=== PATIENT | male | born 1940 | race Caucasian/White ===

== ENCOUNTER 2018-08-01 06:08 | Observation (INO) | payer BC, MEDICARE, OTHER ==
[2018-08-01 06:34] LABS: Hematocrit 39.3 % (42.0-52.0); Mean Cell Volume 87.3 fl (78-100); Mean Corpuscular Hemoglobin 28.9 pg (27-31); Mean Corpuscular Hgb Conc 33.1 g/dl (32-36); Mean Platelet Volume 10.7 fl (8-11.3); Neutrophil # 14.6 K/mm3 (1.3-6.0); Neutrophil % 87.3 % (42-75.0); Platelet Count 225 K/mm3 (150-450); Red Cell Distribution Width 13.1 % (11.5-14.0); White Blood Count 16.7 K/mm3 (4.0-10.5)
--- NOTE | 2018-08-01 06:40 | ERNOTE ---
Chest Pain/Cardiac HPI Chief Complaint: Chest Pain Time Seen by Provider: 08/01/18 06:23 Source: patient Exam Limitations: no limitations Immunizations: IMMUNIZATION HX Immunizations Up to Date Yes Allergies/Adverse Reactions: Allergies codeine Allergy (Unknown, Verified 08/01/18 06:20) Unknown NSAIDS (Non-Steroidal Anti-Inflamma Allergy (Unknown, Verified 08/01/18 06:20) Unknown cortisone [Cortisone] Adverse Reaction (Mild, Verified 08/01/18 06:20) CAUSES HIM TO "LOSE LEFT LEG" Poxhzga-Xsf-Ynn Reductase Inhibitor Adverse Reaction (Unknown, Verified 06:20) "Legs quit functioning" warfarin [Warfarin] Adverse Reaction (Unknown, Verified 08/01/18 06:20) Redness to scalp Home Medications: HOME MEDICATIONS Aspirin [Aspirin EC] 81 mg PO DAILY 08/01/18 [Last Taken 07/31/18 19:00] Cadexomer Iodine [Iodoflex] 1 each TP DAILY 08/01/18 [Last Taken Unknown] Finasteride [Proscar] 5 mg PO DAILY 08/01/18 [Last Taken Unknown] Furosemide 20 mg PO BID 08/01/18 [Last Taken Unknown] Insulin Aspart Prot/Insuln Asp [Novolog Mix 70/30] 40 units SQ QPM 08/01/18 [ Last Taken Unknown] Insulin Aspart Prot/Insuln Asp [Novolog Mix 70/30] 60 units SC QAM 08/01/18 [ Last Taken Unknown] Loratadine [Claritin] 10 mg PO DAILY 08/01/18 [Last Taken Unknown] Losartan Potassium [Cozaar] 100 mg PO DAILY 08/01/18 [Last Taken Unknown] Metoprolol Tartrate [Lopressor] 100 mg PO BID 08/01/18 [Last Taken Unknown] Narrative: Patient is here for chest pain that started sometime in the night. He had not felt well yesterday, was up at lot during the night as he had to belch and was hoping that urinating would help, glucose ran around 500 last night and this morning (usually runs below 200) Chest pain has resolved since coming to the ER He has a history of IA and CABG in 1991, has been dealing with a right foot ulcer for a while. Last night he noticed new redness on his foot Timing: resolved prior to arrival Severity/Quality: moderate Location: central Chest Pain Radiation: no radiation Activities at Onset: none Modifying Factors - Improves: Present: nothing Modifying Factors - Worsens: Present: nothing Nitro Today/Relief: no nitro taken today Associated Symptoms: Present: fever/chills, nausea. Absent: shortness of breath , vomiting Prior Chest Pain/Cardiac Workup: Reports: prior chest pain, cardiac cath Prior Treatment: Denies: recently seen Review of Systems - Review of Systems Constitutional: Present: chills, fatigue, malaise. Absent: recent illness ENT: Absent: nose congestion, sore throat Respiratory: Absent: shortness of breath, cough Cardiology: Present: See HPI, chest pain Gastrointestinal/Abdominal: Present: nausea. Absent: vomiting, diarrhea, abdominal pain Genitourinary: Present: no symptoms reported Musculoskeletal: Absent: back pain Neurological: Absent: headache, weakness, numbness Medical History (Last Updated 08/01/18 @ 08:00 by Yumiko Medina MD) Congestive heart failure (CHF) TIA (transient ischemic attack) Diabetes Foot ulcer Hypertension Myocardial infarct, old Surgical History: Surgical History (Last Reviewed 08/01/18 @ 06:40 by Yumiko Medina MD) History of coronary artery bypass graft History of heart artery stent Social History: Preferred Language Grenadian Do you have any oriental orthodox or No cultural preference? Smoking Status Former smoker Alcohol Use occasionally Drug Use none Physical Exam - Physical Exam General Appearance: Present: wd/wn, alert, no apparent distress, obese Head Exam: Present: normal inspection Respiratory: Present: no respiratory distress, normal breath sounds, lungs clear Cardiovascular/Chest: Present: regular rate, rhythm, no murmur Gastrointestinal/Abdominal: Present: nontender, nondistended, soft Extremity Exam: Present: normal except - - left leg: BKA with prothesis, right foot: deep ulcer under forefoot, erythema extending medially with swelling, no lymphangitis, decrased sensation (chronic) Neurological Exam: Present: alert, oriented, normal mood/affect Skin Exam: Present: normal color, warm/dry ED Progress - Results and Orders Patient's Lab Results:: I have reviewed the patient's lab results. - Vital Signs Patient's Vital Signs:: I have reviewed the patient's vital signs. Vital Signs: Vital Signs 08/01/18 06:09 Temperature 37.6 C Pulse Rate 96 Respiratory Rate 18 Blood Pressure 131/68 O2 Sat by Pulse Oximetry 94 - EKG EKG: NSR, nonspecific ST T wave changes EKG read: Interp. by me - X-Ray X-Ray #1 X-Ray: chest - cardiomegalie, venous congestion, pleural effusion Interpretation: Interp. by me - Progress/Reassessment Chief Complaint: Chest Pain Progress Note-Subjective: 08/01/18 07:30 discussed test results with patient and family offered admission here vs transfer to the [facility], patient is okay to be admitted here wide states that he has never been on antibiotics for this foot ulcer, had wound biopsie a few months ago that did not grow anything, they were given augmentin to start if there were any signs of infections, gave him one dose last night 08/01/18 07:31 discussed with oswald Harrison to admit patient for observation chest pain and cellulitis Departure Clinical Impression: Diabetic foot ulcer Qualifiers: Diabetic foot ulcer location: midfoot Diabetes mellitus type: type 2 Laterality : right Non-pressure ulcer stage: unspecified non-pressure ulcer stage Qualified Code(s): E11.621 - Type 2 diabetes mellitus with foot ulcer; L97.419 - Non-pressure chronic ulcer of right heel and midfoot with unspecified severity Chest pain Qualifiers: Chest pain type: unspecified Qualified Code(s): R07.9 - Chest pain, unspecified Congestive heart failure Qualifiers: Heart failure type: unspecified Heart failure chronicity: unspecified Qualified Code(s): I50.9 - Heart failure, unspecified - Departure Disposition: Still a patient Condition: Good
[2018-08-01] MEDS ORDERED: ASPIRIN 81 MG TAB.CHEW PO ONE (06:43)
[2018-08-01] MEDS ORDERED: ASPIRIN 81 MG TAB.CHEW ONE (06:44)
[2018-08-01 06:46] LABS: Prothrombin Time (Patient) 11.3 Seconds (9.0-11.0)
[2018-08-01 06:47] LABS: INR 1.13 INR (0.90-1.10); Partial Thrombolplastin Time 29.9 Seconds (24-32)
[2018-08-01 07:01] LABS: Albumin * 2.9 gm/dl (3.4-5.0); Anion Gap 12.5 mmol/L (6.8-13.8); BUN/Creatinine Ratio 17.3 (9.0-21.6); Bilirubin, Total 1.1 mg/dL (0.0-1.1); Ca. Corrected For Albumin 8.9 mg/dL (8.4-10.2); Calcium * 8.3 mg/dL (7.9-10.9); Potassium 4.5 mmol/L (3.4-4.6); Total Protein 7.4 gm/dL (6.2-8.2)
[2018-08-01 07:02] LABS: Troponin I 0.229 ng/mL (0.00-0.10)
[2018-08-01] MEDS ORDERED: FUROSEMIDE 10 MG/ML VIAL IV ONE (09:22)
[2018-08-01] MEDS ORDERED: HEPARIN SODIUM,PORCINE/D5W 25,000 UNITS/500 ML BAG IV PRN ×2 (10:22→11:06)
--- NOTE | 2018-08-01 11:03 | HP ---
Chief Complaint - Chief Complaint Date of Service: 08/01/18 Time of Service: 10:35 Chief Complaint: chest pain, elevated glucose, foot ulcer History of Present Illness: Pt with past medical history of diabetes with multiple amputations and decreased renal function presented to the ED after having chest pain and elevated blood sugars. His CP resolved by the time he got to the ED. Initial troponin was 0.2, and increased to 0.9 on recheck. He has a skin ulcer on the plantar surface of his right foot, and has been seeing wound care at the [facility] for approximately one year. He has developed increased dull pain in his right lower leg, and his foot developed some redness yesterday. He has a prescription for augmentin in case he were to have to redness, and he took one dose last night. He was also given a dose of Rocephin in the ED. Denies fevers, and no changes in his appetite. His blood sugars have also been elevated, and were greater than 500 last night. He gives himself 70/30 insulin bid, but his sugars have remained elevated. They are greater than 400 today. Medical History (Last Updated 08/01/18 @ 08:00 by Yumiko Medina MD) Congestive heart failure (CHF) TIA (transient ischemic attack) Diabetes Foot ulcer Hypertension Myocardial infarct, old Surgical History: Surgical History (Last Reviewed 08/01/18 @ 06:40 by Yumiko Medina MD) History of coronary artery bypass graft History of heart artery stent Family History: Family History (Last Updated 08/01/18 @ 09:27 by Umu Nieves RN) Mother Diabetes Father Diabetes Myocardial infarction Brother Esophageal cancer Social History: Patient Lives/Resources With Spouse Utilized Occupation retired Preferred Language American Do you have any shinto or No cultural preference? Smoking Status Former smoker Have you smoked in the past 12 No months Do you dip or chew tobacco No Alcohol Use occasionally Drug Use none Review Of Systems (GEN) - Review of Systems Generalized/Overall Review: Absent: Fever, Malaise, Diaphoresis Respiratory: Absent: Cough Cardiac: Absent: Chest Pain, Edema, Syncope Abdominal: Absent: Nausea, Diarrhea Genitourinary: Absent: Dysuria Musculoskeletal: Present: Other - Right lower extremity pain Skin: Present: Other - 3 cm ulcer Immunizations: IMMUNIZATION HX Immunizations Up to Date Yes Allergies/Adverse Reactions: Allergies Allergy/AdvReac Type Severity Reaction Status Date / Time codeine Allergy Unknown Unknown Verified 08/01/18 06:20 NSAIDS (Non-Steroidal Allergy Unknown Unknown Verified 08/01/18 06:20 Anti-Inflamma cortisone [Cortisone] AdvReac Mild CAUSES HIM Verified 08/01/18 06:20 TO "LOSE LEFT LEG" Ltxgump-Cyx-Laa Reductase AdvReac Unknown "Legs quit Verified 08/01/18 06:20 Inhibitor functioning" warfarin [Warfarin] AdvReac Unknown Redness to Verified 08/01/18 06:20 scalp Home Medications: HOME MEDICATIONS Aspirin [Aspirin EC] 81 mg PO DAILY 08/01/18 [Last Taken 07/31/18 19:00] Cadexomer Iodine [Iodoflex] 1 each TP DAILY 08/01/18 [Last Taken Unknown] Finasteride [Proscar] 5 mg PO DAILY 08/01/18 [Last Taken Unknown] Insulin Aspart Prot/Insuln Asp [Novolog Mix 70/30] 42 units SQ QPM 08/01/18 [ Last Taken Unknown] Insulin Aspart Prot/Insuln Asp [Novolog Mix 70/30] 62 units SC QAM 08/01/18 [ Last Taken Unknown] Loratadine [Claritin] 10 mg PO DAILY 08/01/18 [Last Taken Unknown] Losartan Potassium [Cozaar] 50 mg PO DAILY 08/01/18 [Last Taken Unknown] Metoprolol Tartrate [Lopressor] 100 mg PO BID 08/01/18 [Last Taken Unknown] RX: Furosemide 20 mg PO BID 08/01/18 [Last Taken Unknown] Exam - Exam Vital Signs: Vital Signs - Last Taken Temp 37.0 C 08/01/18 09:02 Pulse 70 08/01/18 09:50 Resp 20 08/01/18 09:02 BP 113/58 08/01/18 09:50 Pulse Ox 94 08/01/18 09:02 Constitutional: Present: Oriented x3, Cooperative, No distress Respiratory: Present: lungs clear, normal breath sounds, no respiratory distress Cardiovascular/Chest: Present: regular rate, rhythm Peripheral Pulses: dorsalis-pedis (R): 0 Abdomen: Present: soft, nontender Extremity: Present: other - Left lower leg amputation. right great toe amputation Skin Exam: Present: other - 3 cm stage 3 ulcer of plantar surface of right foot , with mild forefoot erythema. Healing 1.4 cm ulcer of right calcaneus Lymphatic: Present: other - 3 cm stage 3 ulcer of plantar surface of right foot , with mild forefoot erythema Appearance: Present: impaired insight Eye contact: Present: cooperative Diagnostic Studies: Abnormal Lab Results 08/01/18 08/01/18 08/01/18 Range/Units 05:30 06:30 06:30 WBC 16.7 H (4.0-10.5) K/mm3 RBC 4.50 L (4.7-6.0) M/mm3 Hgb 13.0 L (13.5-18.0) gm/dL Hct 39.3 L (42.0-52.0) % Immature Gran # (Auto) 0.06 H (0.000-0.0310) K/mm3 Neutrophils % 87.3 H (42-75.0) % Lymphocytes % 6.4 L (20-51) % Neutrophils # 14.6 H (1.3-6.0) K/mm3 Lymphocytes # 1.07 L (1.5-3.5) k/mm3 PT 11.3 H (9.0-11.0) Seconds INR (Anticoag Therapy) 1.13 H (0.90-1.10) INR Sodium (132-142) mmol/L Chloride (97-106) mmol/L BUN (6-23) mg/dL Creatinine (0.4-1.4) mg/dL Est GFR (Non-Af Amer) (60-130) mL/min Random Glucose (70-110) mg/dL ALT (19-67) U/L Troponin I (0.00-0.10) ng/mL C-Reactive Prot, Quant 23.4 H (0.0-0.9) mg/dL B-Natriuretic Peptide (5-650) pg/mL Albumin (3.4-5.0) gm/dl 08/01/18 08/01/18 08/01/18 Range/Units 06:30 07:00 09:47 WBC (4.0-10.5) K/mm3 RBC (4.7-6.0) M/mm3 Hgb (13.5-18.0) gm/dL Hct (42.0-52.0) % Immature Gran # (Auto) (0.000-0.0310) K/mm3 Neutrophils % (42-75.0) % Lymphocytes % (20-51) % Neutrophils # (1.3-6.0) K/mm3 Lymphocytes # (1.5-3.5) k/mm3 PT (9.0-11.0) Seconds INR (Anticoag Therapy) (0.90-1.10) INR Sodium 127 L (132-142) mmol/L Chloride 93 L (97-106) mmol/L BUN 34 H (6-23) mg/dL Creatinine 1.97 H (0.4-1.4) mg/dL Est GFR (Non-Af Amer) 35 L D (60-130) mL/min Random Glucose 484 H (70-110) mg/dL ALT 12 L (19-67) U/L Troponin I 0.229 H* 0.795 H* (0.00-0.10) ng/mL C-Reactive Prot, Quant (0.0-0.9) mg/dL B-Natriuretic Peptide 91354 H (5-650) pg/mL Albumin 2.9 L (3.4-5.0) gm/dl Laboratory Results WBC 16.7 K/mm3 (4.0-10.5) H 08/01/18 06:30 RBC 4.50 M/mm3 (4.7-6.0) L 08/01/18 06:30 Hgb 13.0 gm/dL (13.5-18.0) L 08/01/18 06:30 Hct 39.3 % (42.0-52.0) L 08/01/18 06:30 MCV 87.3 fl (78-100) 08/01/18 06:30 MCH 28.9 pg (27-31) 08/01/18 06:30 MCHC 33.1 g/dl (32-36) 08/01/18 06:30 RDW 13.1 % (11.5-14.0) 08/01/18 06:30 Plt Count 225 K/mm3 (150-450) 08/01/18 06:30 MPV 10.7 fl (8-11.3) 08/01/18 06:30 Immature Gran % (Auto) 0.40 % (0.001-0.429) 08/01/18 06:30 Immature Gran # (Auto) 0.06 K/mm3 (0.000-0.0310) H 08/01/18 06:30 Neutrophils % 87.3 % (42-75.0) H 08/01/18 06:30 Lymphocytes % 6.4 % (20-51) L 08/01/18 06:30 Monocytes % 5.5 % (0.0-9) 08/01/18 06:30 Eosinophils % 0.1 % (0.0-3.0) 08/01/18 06:30 Basophils % 0.3 % (0.0-1.0) 08/01/18 06:30 Nucleated RBC % 0.0 k/mm3 (0-1) 08/01/18 06:30 Neutrophils # 14.6 K/mm3 (1.3-6.0) H 08/01/18 06:30 Lymphocytes # 1.07 k/mm3 (1.5-3.5) L 08/01/18 06:30 Monocytes # 0.9 k/mm3 (0.0-1.0) 08/01/18 06:30 Eosinophils # 0.0 k/mm3 (0.0-0.7) 08/01/18 06:30 Absolute Basophils 0.1 k/mm3 (0.0-0.1) 08/01/18 06:30 PT 11.3 Seconds (9.0-11.0) H 08/01/18 06:30 INR (Anticoag Therapy) 1.13 INR (0.90-1.10) H 08/01/18 06:30 PTT (Beth) 29.9 Seconds (24-32) 08/01/18 06:30 VBG pH 7.392 (7.32-7.43) 08/01/18 06:30 Sodium 127 mmol/L (132-142) L 08/01/18 06:30 Plasma Sodium 133 mmol/L (130-142) 08/01/18 06:30 Potassium 4.5 mmol/L (3.4-4.6) 08/01/18 06:30 Chloride 93 mmol/L (97-106) L 08/01/18 06:30 Carbon Dioxide 26.0 mmol/L (24-32.6) 08/01/18 06:30 Anion Gap 12.5 mmol/L (6.8-13.8) 08/01/18 06:30 BUN 34 mg/dL (6-23) H 08/01/18 06:30 Creatinine 1.97 mg/dL (0.4-1.4) H 08/01/18 06:30 Est GFR (Non-Af Amer) 35 mL/min (60-130) L D 08/01/18 06:30 BUN/Creatinine Ratio 17.3 (9.0-21.6) 08/01/18 06:30 Random Glucose 484 mg/dL (70-110) H 08/01/18 06:30 Calcium 8.3 mg/dL (7.9-10.9) 08/01/18 06:30 Calcium Adj for Albumin 8.9 mg/dL (8.4-10.2) 08/01/18 06:30 Total Bilirubin 1.1 mg/dL (0.0-1.1) 08/01/18 06:30 AST 14 U/L (0-48) 08/01/18 06:30 ALT 12 U/L (19-67) L 08/01/18 06:30 Alkaline Phosphatase 138 U/L (50-170) 08/01/18 06:30 Troponin I 0.795 ng/mL (0.00-0.10) H* 08/01/18 09:47 C-Reactive Prot, Quant 23.4 mg/dL (0.0-0.9) H 08/01/18 05:30 B-Natriuretic Peptide 91587 pg/mL (5-650) H 08/01/18 07:00 Total Protein 7.4 gm/dL (6.2-8.2) 08/01/18 06:30 Albumin 2.9 gm/dl (3.4-5.0) L 08/01/18 06:30 Serum Ketones Negative (NEGATIVE) 08/01/18 06:30 Assessment/Plan - Assessment/Plan (1) NSTEMI (non-ST elevated myocardial infarction) Assessment: Patient's troponin is quickly elevating, from 0.2 to 0.79 within 3 hours. [facility] Not currently having chest pain. Problem: Acute (2) Diabetic foot ulcer Assessment: Concern for osteomyelitis with his pain and developing erythema. Unable to obtain MRI today on Friday. He likely will also need surgical consult. Transfer process has been started for his NSTEMI, but his possible osteomyelitis will also need treatment at another facility as he may need surgery. His creatinine is 1.9, which looks to be his baseline renal function. He took one dose of augmentin last night, and was given a dose of Rocephin this morning. If he does not transfer this morning, will start IV vancomycin with pharmacy to dose. Problem: Acute Qualifiers: Diabetic foot ulcer location: midfoot Diabetes mellitus type: type 2 Laterality: right Non-pressure ulcer stage: unspecified non-pressure ulcer stage Qualified Code(s): E11.621 - Type 2 diabetes mellitus with foot ulcer; L97.419 - Non-pressure chronic ulcer of right heel and midfoot with unspecified severity (3) Diabetes Assessment: Negative ketones, but his glucose is greater than 400, likely secondary to his foot infection or NSTEMI. Will start SSI and continue his home insulin. 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 No crackles or lower extremity swelling. 20 mg IV lasix given. Problem: Chronic Qualifiers: Heart failure type: unspecified Heart failure chronicity: unspecified Qualified Code(s): I50.9 - Heart failure, unspecified (5) Decreased renal function Assessment: Creatinine of 1.9, which is his baseline. Will need to carefully follow renal function with the administration of abx, particularly vancomycin. Problem: Chronic
[2018-08-01] MEDS ORDERED: HEPARIN SODIUM,PORCINE 5,000 UNITS/ML VIAL IV ONE (11:04)
[2018-08-01] MEDS: INSULIN LISPRO 100 UNITS/ML VIAL SC SCH ×3 (12:09→21:36)
[2018-08-01] MEDS ORDERED: WATER IV SCH ×2 (13:00)
[2018-08-01] MEDS ORDERED: DEXTROSE 5% IV SCH ×2 (13:00)
[2018-08-01] MEDS ORDERED: VANCOMYCIN HCL IV SCH ×2 (13:00)
--- NOTE | 2018-08-01 13:23 | DS ---
Transfer Discharge Summary - Diagnosis(s)/Problems (1) NSTEMI (non-ST elevated myocardial infarction) Narrative: Heparin drip started, and he was accepted by the [facility] for possible cath. Problem: Acute (2) Diabetic foot ulcer Narrative: Possible osteomyelitis of his right foot. Vanc started, and would recommend MRI after transfer. Patient is at high risk for recurrent osteomyelitis, as he has had his left lower leg amputated, and his right great toe amputated. Problem: Acute (3) Diabetes Problem: Chronic (4) Congestive heart failure Narrative: 20 mg IV lasix given. No significant crackles or lower extremity edema. Problem: Chronic (5) Decreased renal function Narrative: Creatinine at 1.97. Will need close follow up after starting vancomycin. Problem: Chronic - Course Description of Stay: Patient presented to the ED after having some chest pain, hyperglycemia, and increasing redness of his right foot. He has a history of a previous RI. His chest pain had resolved by the time he arrived to the ED, but he was worried about his blood sugars. It was greater than 500 yesterday, and in the 400's in the ED. He also has a right foot ulcer, which has been present for a year and [facility] [place] He has been having increased right lower extremity pain, and noticed mild redness yesterday. He had an existing prescription for augmentin for this situation, and he took one tablet last night. His troponin went from 0.229 to 0.792 within 3 hours, and transfer procedure was initiated. Heparin drip was started. He was accepted by the [facility] For his foot ulcer, he was administered a dose of Rocephin in the ED, and IV vanc was started. His creatinine was 1.97, which was his baseline. Pharmacy was asked to dose his vancomycin. Foot xray showed possible pathologic fracture or osteomyelitis of the second metatarsal. Unable to obtain MRI here on the weekend, so this will be further addressed by the transfer facility. His blood sugar was 445, and SSI was initiated. Negative ketones, and venous blood gas was 7.392. Procedures Performed: none - Results and Findings Results and Findings: Laboratory Results - last 24 hr 08/01/18 08/01/18 08/01/18 05:30 06:30 06:30 WBC 16.7 H RBC 4.50 L Hgb 13.0 L Hct 39.3 L MCV 87.3 MCH 28.9 MCHC 33.1 RDW 13.1 Plt Count 225 MPV 10.7 Immature Gran % (Auto) 0.40 Immature Gran # (Auto) 0.06 H Neutrophils % 87.3 H Lymphocytes % 6.4 L Monocytes % 5.5 Eosinophils % 0.1 Basophils % 0.3 Nucleated RBC % 0.0 Neutrophils # 14.6 H Lymphocytes # 1.07 L Monocytes # 0.9 Eosinophils # 0.0 Absolute Basophils 0.1 PT 11.3 H INR (Anticoag Therapy) 1.13 H PTT (Beth) 29.9 VBG pH Sodium Plasma Sodium Potassium Chloride Carbon Dioxide Anion Gap BUN Creatinine Est GFR (Non-Af Amer) BUN/Creatinine Ratio Random Glucose Calcium Calcium Adj for Albumin Total Bilirubin AST ALT Alkaline Phosphatase Troponin I C-Reactive Prot, Quant 23.4 H B-Natriuretic Peptide Total Protein Albumin Serum Ketones 08/01/18 08/01/18 08/01/18 06:30 06:30 06:30 WBC RBC Hgb Hct MCV MCH MCHC RDW Plt Count MPV Immature Gran % (Auto) Immature Gran # (Auto) Neutrophils % Lymphocytes % Monocytes % Eosinophils % Basophils % Nucleated RBC % Neutrophils # Lymphocytes # Monocytes # Eosinophils # Absolute Basophils PT INR (Anticoag Therapy) PTT (Beth) VBG pH 7.392 Sodium 127 L Plasma Sodium 133 Potassium 4.5 Chloride 93 L Carbon Dioxide 26.0 Anion Gap 12.5 BUN 34 H Creatinine 1.97 H Est GFR (Non-Af Amer) 35 L D BUN/Creatinine Ratio 17.3 Random Glucose 484 H Calcium 8.3 Calcium Adj for Albumin 8.9 Total Bilirubin 1.1 AST 14 ALT 12 L Alkaline Phosphatase 138 Troponin I 0.229 H* C-Reactive Prot, Quant B-Natriuretic Peptide Total Protein 7.4 Albumin 2.9 L Serum Ketones Negative 08/01/18 08/01/18 08/01/18 07:00 09:47 09:47 WBC RBC Hgb Hct MCV MCH MCHC RDW Plt Count MPV Immature Gran % (Auto) Immature Gran # (Auto) Neutrophils % Lymphocytes % Monocytes % Eosinophils % Basophils % Nucleated RBC % Neutrophils # Lymphocytes # Monocytes # Eosinophils # Absolute Basophils PT INR (Anticoag Therapy) PTT (Beth) VBG pH Sodium Plasma Sodium Potassium Chloride Carbon Dioxide Anion Gap BUN Creatinine 2.01 H Est GFR (Non-Af Amer) BUN/Creatinine Ratio Random Glucose Calcium Calcium Adj for Albumin Total Bilirubin AST ALT Alkaline Phosphatase Troponin I 0.795 H* C-Reactive Prot, Quant B-Natriuretic Peptide 39918 H Total Protein Albumin Serum Ketones - Medications Medications: Active Medications Ceftriaxone Sodium 1,000 mg/ (Dextrose/Water) 100 mls @ 200 mls/hr IV Q24H [facility] ; Protocol Stop: 08/31/18 08:01 Last Admin: 08/01/18 09:35 Dose: Not Given Heparin Sodium/Dextrose (Heparin 25,000 Units/D5w 500 Ml) 25,000 units in 500 mls @ 0 mls/hr IV TITR PRN; Protocol PRN Reason: Anticoagulation Stop: 08/31/18 11:07 Last Admin: 08/01/18 12:04 Dose: 20 mls/hr, 20 mls/hr Insulin Human Lispro (Humalog) 0 units SC ACHSINS [facility]; Protocol Stop: 08/31/18 12:01 Last Admin: 08/01/18 12:09 Dose: 6 units Discontinued Medications Aspirin (Aspirin Chewable) 324 mg PO ONCE ONE Stop: 08/01/18 06:44 Last Admin: 08/01/18 07:01 Dose: 324 mg Furosemide (Lasix) 20 mg IV ONCE ONE Stop: 08/01/18 09:23 Last Admin: 08/01/18 09:50 Dose: 20 mg Heparin Sodium (Porcine) (Heparin Sodium) 4,000 units IV ONCE ONE Stop: 08/01/18 11:05 Last Admin: 08/01/18 11:22 Dose: 4,000 units - Disposition Disposition: Short Term Hospital Inpatient Condition: Fair
[2018-08-01] MEDS ORDERED: INSULIN LISPRO 100 UNITS/ML VIAL SC ONE (13:45)
[2018-08-01] MEDS: BENZOCAINE/MENTHOL 16 EACH BOX MM PRN ×2 (15:13→17:14)
[2018-08-01] MEDS ORDERED: NORMAL SALINE 1,000 ML IV PRN (16:39)
[2018-08-01] MEDS: HEPARIN SODIUM,PORCINE/D5W 25,000 UNITS/500 ML BAG IV PRN (19:10)
[2018-08-02] MEDS ORDERED: HEPARIN SODIUM,PORCINE/D5W 25,000 UNITS/500 ML BAG IV PRN (02:01)
[2018-08-02] MEDS: INSULIN LISPRO 100 UNITS/ML VIAL SC SCH (06:57)
[2018-08-02] MEDS ORDERED: BISACODYL 10 MG SUPP.RECT RC PRN (07:29)
[2018-08-02 08:10] LABS: Hematocrit 37.6 % (42.0-52.0); Hemoglobin 12.4 gm/dL (13.5-18.0); Mean Corpuscular Hemoglobin 28.7 pg (27-31); Mean Platelet Volume 10.8 fl (8-11.3); Neutrophil # 9.2 K/mm3 (1.3-6.0); Neutrophil % 81.1 % (42-75.0); Platelet Count 219 K/mm3 (150-450); Red Blood Count 4.32 M/mm3 (4.7-6.0); White Blood Count 11.3 K/mm3 (4.0-10.5)
[2018-08-02 08:19] LABS: Albumin * 2.4 gm/dl (3.4-5.0); Anion Gap 9.8 mmol/L (6.8-13.8); BUN/Creatinine Ratio 19.9 (9.0-21.6); Bilirubin, Total 0.6 mg/dL (0.0-1.1); Carbon Dioxide 27.2 mmol/L (24-32.6); Total Protein 6.6 gm/dL (6.2-8.2)
[2018-08-02] MEDS ORDERED: POLYETHYLENE GLYCOL 3350 119 GM BTL PO SCH (09:00)
[2018-08-02] MEDS ORDERED: CLOPIDOGREL BISULFATE 75 MG TABLET PO STA (09:39)
[2018-08-02] MEDS ORDERED: ASPIRIN 81 MG TAB.CHEW PO ONE (09:41)
--- NOTE | 2018-08-02 09:47 | PN ---
Allen Note - Interim Date: 08/02/18 Time: 09:43 Narrative: 08/02/18 09:43 Notified by nursing that he had a run of vtach. Is currently not having chest pain or shortness of breath, but is starting to cough. No lung crackles or increased swelling in his RLE. Creatinine and WBC improved from yesterday. Called [facility], and they will expedite his transfer as his status may be changing. EKG does not look significantly different from yesterday, but has [address] depression in leads V4 and V5. Troponin of 0.9. Will administer plavix and aspirin. Continue heparin drip. Vanc also still ordered for his potential osteomyelitis.
[2018-08-02] MEDS: HEPARIN SODIUM,PORCINE/D5W 25,000 UNITS/500 ML BAG IV PRN (09:57)
[2018-08-02 11:22] VITALS: BP 124/56
--- NOTE | 2018-08-03 08:33 | PN ---
Subjective - Date and Time Seen Date: 08/02/18 Time: 08:28 Subjective Narrative: Patient continues to be free of chest pain, but his is concerned he is "filling up with fluid." He had a run of vtach in the morning, and [facility] agreed to accept him emergently. Objective - Review of Systems Generalized/Overall Review: Denies: Fever Cardiac: Denies: Chest Pain, Edema, Palpitations Abdominal: Denies: Vomiting Musculoskeletal Complaints: Reports: Other - RLE pain - Vitals Vitals: Last Vital Signs Temp 36.7 C 08/02/18 10:30 Pulse 88 08/02/18 10:30 Resp 20 08/02/18 10:30 BP 124/56 08/02/18 10:30 Pulse Ox 95 08/02/18 10:30 - Abnormal Lab Findings Abnormal Lab Findings: Abnormal Lab Results 08/02/18 08/02/18 Range/Units 07:59 08:03 Sodium 130 L (132-142) mmol/L BUN 33 H (6-23) mg/dL Creatinine 1.66 H (0.4-1.4) mg/dL Est GFR (Non-Af Amer) 43 L D (60-130) mL/min Random Glucose 285 H D (70-110) mg/dL ALT 11 L (19-67) U/L Troponin I 0.925 H* (0.00-0.10) ng/mL Albumin 2.4 L (3.4-5.0) gm/dl - Exam Constitutional: Present: Alert, Oriented x3, Cooperative, No distress Respiratory: Present: lungs clear, normal breath sounds Cardiovascular/Chest: Present: regular rate, rhythm Neurologic: Present: normal mood/affect Assessment/Plan - Problems/Diagnosis (1) NSTEMI (non-ST elevated myocardial infarction) Problem: Acute Narrative: Transfer to [facility]. Continue heparin drip. Administered aspirin and plavix. (2) Diabetic foot ulcer Problem: Acute Qualifiers: Diabetic foot ulcer location: midfoot Diabetes mellitus type: type 2 Laterality: right Non-pressure ulcer stage: unspecified non-pressure ulcer stage Qualified Code(s): E11.621 - Type 2 diabetes mellitus with foot ulcer; L97.419 - Non-pressure chronic ulcer of right heel and midfoot with unspecified severity Narrative: continue vanc. Improvement in creatinine. (3) Diabetes Problem: Chronic Qualifiers: Diabetes mellitus type: type 2 Diabetes mellitus joint terminal attack controller insulin use: with intermediate use Diabetes mellitus complication status: with hyperglycemia Qualified Code(s): E11.65 - Type 2 diabetes mellitus with hyperglycemia; Z79.4 - senior care (current) use of insulin (4) Congestive heart failure Problem: Chronic Qualifiers: Heart failure type: unspecified Heart failure chronicity: unspecified Qualified Code(s): I50.9 - Heart failure, unspecified (5) Decreased renal function Problem: Chronic
== END 2018-08-02 10:50 | disposition short-term general hospital (02) ==
LOC: MS 06:08 → ER 06:08
PROVIDERS: ADMIT Family Medicine; ATTEND Family Medicine
DX: Z68.29 Body mass index [BMI] 29.0-29.9, adult; E11.65 Type 2 diabetes mellitus with hyperglycemia; E11.621 Type 2 diabetes mellitus with foot ulcer; L97.412 Non-pressure chronic ulcer of right heel and midfoot with fat layer exposed; Z89.512 Acquired absence of left leg below knee; N18.9 Chronic kidney disease, unspecified; Z87.891 Personal history of nicotine dependence; Z95.1 Presence of aortocoronary bypass graft; I50.9 Heart failure, unspecified; I21.4 Non-ST elevation (NSTEMI) myocardial infarction; I12.9 Hypertensive chronic kidney disease with stage 1 through stage 4 chronic kidney disease, or unspecified chronic kidney disease
CPT/HCPCS: 36415; 71020; 71046; 73630; 80053; 82009; 82565; 82800; 83519; 83880; 84484; 85025; 85610; 85730; 86140; 93005; 96361; 96365; 96366; 96367; 96372; 96375; 99285; G0378

== ENCOUNTER 2018-12-23 02:14 | Inpatient (IN) ==
--- NOTE | 2018-12-23 02:38 | ERNOTE ---
Dyspnea - General Presenting Symptoms: shortness of breath Time Seen by Provider: 12/23/18 02:19 Source: patient, old records Exam Limitations: no limitations - Immun/Allergies/Home Medications Immunizations: IMMUNIZATION HX Immunizations Up to Date Yes History of Influenza Vaccine No Hx Pneumococcal Vaccination More Information Required Allergies/Adverse Reactions: Allergies codeine Allergy (Unknown, Verified 12/23/18 02:25) Unknown NSAIDS (Non-Steroidal Anti-Inflamma Allergy (Unknown, Verified 12/23/18 02:25) Unknown cortisone [Cortisone] Adverse Reaction (Mild, Verified 12/23/18 02:25) CAUSES HIM TO "LOSE LEFT LEG" Sklmedl-Oto-Slc Reductase Inhibitor Adverse Reaction (Unknown, Verified 12/23/18 02:25) "Legs quit functioning" warfarin [Warfarin] Adverse Reaction (Unknown, Verified 12/23/18 02:25) Redness to scalp Home Medications: HOME MEDICATIONS Aspirin [Aspirin EC] 81 mg PO DAILY 08/01/18 [Last Taken 07/31/18 19:00] Finasteride [Proscar] 5 mg PO DAILY 08/01/18 [Last Taken Unknown] Insulin Aspart Prot/Insuln Asp [Novolog Mix 70/30] 16 units SQ QPM 08/01/18 [Last Taken Unknown] Insulin Aspart Prot/Insuln Asp [Novolog Mix 70/30] 30 units SC QAM 08/01/18 [Last Taken Unknown] Insulin Aspart [Novolog] 100 units SC TID 11/14/18 [Last Taken Unknown] Bumetanide 2 mg PO BID 12/23/18 [Last Taken Unknown] Bupropion HCl [Wellbutrin Sr] 100 mg PO DAILY 12/23/18 [Last Taken Unknown] Metoprolol Succinate 25 mg PO DAILY 12/23/18 [Last Taken Unknown] - History of Present Illness Narrative: Pt reports dyspnea increasing over 2 days. He had a BKA on the right 3-4 weeks ago. He was seen at [facility] and found to be in CHF and to have a positive d-dimer. They do not have the capability to do a CTA at night and the [place] where the patient usually gets his care did not have a bed for him. Dr. Sandy [facility] authorized payment for the patient due to their lack of available space. I was called by Dr. Sandy in request to transfer the patient here and complete a CTA and further treat the patient. Pt was transferred here by [facility]. He arrived with 4L of supplemental O2 by NC and SaO2 of 90-92% and with talking down to 88% at times. Severity: moderate Treatment SUPERVISOR BINDERY: EDP, oxygen, lasix Initiating event: Reports: unknown Frequency of episodes: Reports: occassional episodes Modifying Factors - (Improves): Reports: oxygen Modifying Factors (Worsens): Reports: activity, other - talking Prior Treatment: Reports: recently seen, treated by physician, recently hospitalized Review of Systems - Review of Systems Constitutional: Absent: recent illness, fever ENT: Absent: nose congestion, nasal drainage Respiratory: Present: shortness of breath, cough, orthopnea Cardiology: Absent: chest pain Gastrointestinal/Abdominal: Absent: nausea, vomiting Genitourinary: Present: frequency Musculoskeletal: Absent: back pain, muscle pain Skin: Absent: rash Neurological: Absent: headache, dizziness/light-headedness Endocrine: Absent: excessive sweating, flushing Hematologic/Lymphatic: Absent: easy bruising, easy bleeding Medical History (Last Updated 12/23/18 @ 04:09 by Rodney Cortez DO) History of left below knee amputation (Acute) History of right below knee amputation (Acute) Congestive heart failure (CHF) (Acute) Myocardial infarct, old (Acute) Hypertension (Acute) Diabetes (Acute) Foot ulcer TIA (transient ischemic attack) Surgical History: Surgical History (Last Updated 12/23/18 @ 04:09 by Rodney Cortez DO) Status post bilateral below knee amputation (Acute) History of heart artery stent (Acute) History of coronary artery bypass graft (Acute) x5 Family History: Family History (Last Reviewed 12/23/18 @ 02:36 by Rodney Cortez DO) Mother Diabetes Father Diabetes Myocardial infarction Brother Esophageal cancer Social History: Preferred Language Thai Smoking Status Never smoker No Social History Section defined Physical Exam - Physical Exam General Appearance: Present: wd/wn, alert, no apparent distress Head Exam: Present: normal inspection, no evidence of injury Neck: Present: normal inspection, nontender, supple Respiratory: Present: no respiratory distress, lungs clear, accessory muscle use - mild Cardiovascular/Chest: Present: regular rate, rhythm, no murmur Gastrointestinal/Abdominal: Present: nondistended, soft Extremity Exam: Present: normal except - - bilateral BKA. Most recent on the right and is well healed without any breakdown or abnormality of the stump., no edema Neurological Exam: Present: alert, oriented, normal mood/affect, no motor/sensory deficits, senior marketing analyst II-XII nml as tested Skin Exam: Present: normal color, warm/dry Lymphatic Exam: Present: no adenopathy Progress - Results and Orders Patient's Lab Results:: I have reviewed the patient's lab results. Results and Orders: Labs from [facility] D-dimer 3.89, BNP 3256 CBC, CMP unremarkable. - Vital Signs Patient's Vital Signs:: I have reviewed the patient's vital signs. - CT/Ultrasound CT/Ultrasound Narrative: CTA chest showed B/L pulmonary emboli in the upper and lower lobes bilateral. Bilateral pleural effusion and a distended gallbladder. No evidence of right heart strain. - Progress/Reassessment Progress:: Unchanged Progress Note-Subjective: 12/23/18 03:[address] Montejo and she agrees with admission. Departure Clinical Impression: CHF (congestive heart failure), NYHA class IV Qualifiers: Congestive heart failure type: systolic Congestive heart failure chronicity: acute Qualified Code(s): I50.21 - Acute systolic (congestive) heart failure Pulmonary emboli Qualifiers: Pulmonary embolism type: other Chronicity: acute Acute cor pulmonale presence: without acute cor pulmonale Qualified Code(s): I26.99 - Other pulmonary embolism without acute cor pulmonale - Departure Disposition: Still a patient Condition: Fair
[2018-12-23] MEDS ORDERED: ENOXAPARIN SODIUM 100 MG/ML SYRG SC SCH (04:15)
[2018-12-23] MEDS ORDERED: ALBUTEROL SULFATE/IPRATROPIUM 3 ML NEBU IH SCH (10:30)
--- NOTE | 2018-12-23 11:02 | HP ---
Chief Complaint - Chief Complaint Date of Service: 12/23/18 Time of Service: 10:55 Chief Complaint: Shortness of breath History of Present Illness: This is an 78-year-old male with a past medical history of congestive heart failure, myocardial infarct, hypertension, diabetes, bilateral BKA who presents from a rehab facility with complaints of shortness of breath for the past 2 days. He states that when he speaks he has increased shortness of breath. He had a right BKA 3-4 weeks ago. He was transferred to [facility] and found to have a CHF exacerbation as well as a positive d-dimer. They were unable to perform a CT angioma at night. He follows with Dr. Sandy at the [facility] [place] but they did not have any beds for him so he was transferred here. In the emergency department he was found to have an oxygen saturation of 90-92% on 4 L of oxygen. Oxygen saturation decreased to 88% on speaking. CT angios performed here and he was found to have acute pulmonary embolism in the right upper lobe involving segmental and sub-segmental branches, large bilateral pleural effusions with associated bibasilar compressive atelectasis. No consolidation beyond the compressive atelectasis to suggest pneumonia. Patient has been admitted for management of these issues. He was started on Lovenox twice daily. Medical History (Last Reviewed 12/23/18 @ 05:28 by Nicolasa Fuller RN) History of left below knee amputation (Acute) History of right below knee amputation (Acute) Congestive heart failure (CHF) (Acute) Myocardial infarct, old (Acute) Hypertension (Chronic) Diabetes (Chronic) Foot ulcer TIA (transient ischemic attack) Surgical History: Surgical History (Last Reviewed 12/23/18 @ 05:28 by Nicolasa Fuller RN) Status post bilateral below knee amputation (Acute) History of heart artery stent (Acute) History of coronary artery bypass graft (Acute) x5 Family History: Family History (Last Reviewed 12/23/18 @ 05:28 by Nicolasa Fuller RN) Mother Diabetes Father Diabetes Myocardial infarction Brother Esophageal cancer Social History: Patient Lives/Resources [place] Utilized Occupation Retired Preferred Language Tamazight Do you have any zoroastrianism or Yes: Presybeterian cultural preference? Smoking Status Former smoker Have you smoked in the past 12 No months Do you dip or chew tobacco No Alcohol Use rarely Drug Use none No Social History Section defined Review Of Systems (GEN) - Review of Systems Respiratory: Present: Shortness of Breath, Orthopnea Cardiac: Present: Edema. Absent: Chest Pain Abdominal: Absent: Nausea, Vomiting, Abdominal Pain Genitourinary: Present: Frequency Misc: All systems neg except as marked Immunizations: IMMUNIZATION HX Immunizations Up to Date Yes History of Influenza Vaccine Yes Hx Pneumococcal Vaccination Yes Allergies/Adverse Reactions: Allergies Allergy/AdvReac Type Severity Reaction Status Date / Time codeine Allergy Unknown Unknown Verified 12/23/18 02:25 NSAIDS (Non-Steroidal Allergy Unknown Unknown Verified 12/23/18 02:25 Anti-Inflamma cortisone [Cortisone] AdvReac Mild CAUSES HIM Verified 12/23/18 02:25 TO "LOSE LEFT LEG" Cgnhchb-Txc-Btl Reductase AdvReac Unknown "Legs quit Verified 12/23/18 02:25 Inhibitor functioning" warfarin [Warfarin] AdvReac Unknown Redness to Verified 12/23/18 02:25 scalp Home Medications: HOME MEDICATIONS Aspirin [Aspirin EC] 81 mg PO DAILY 08/01/18 [Last Taken 07/31/18 19:00] Finasteride [Proscar] 5 mg PO DAILY 08/01/18 [Last Taken Unknown] Insulin Aspart Prot/Insuln Asp [Novolog Mix 70/30] 16 units SQ QPM 08/01/18 [Last Taken Unknown] Insulin Aspart Prot/Insuln Asp [Novolog Mix 70/30] 30 units SC QAM 08/01/18 [Last Taken Unknown] Insulin Aspart [Novolog] 100 units SC TID 11/14/18 [Last Taken Unknown] Bumetanide 2 mg PO BID 12/23/18 [Last Taken Unknown] Bupropion HCl [Wellbutrin Sr] 100 mg PO DAILY 12/23/18 [Last Taken Unknown] Metoprolol Succinate 25 mg PO DAILY 12/23/18 [Last Taken Unknown] Exam - Exam Vital Signs: Vital Signs - Last Taken Temp 36.7 C 12/23/18 05:09 Pulse 102 H 12/23/18 08:38 Resp 22 H 12/23/18 05:09 BP 119/58 12/23/18 05:09 Pulse Ox 92 L 12/23/18 05:09 Constitutional: Present: Alert, Cooperative Neck: Present: non-tender, supple Respiratory: Present: crackles Cardiovascular/Chest: Present: no edema, no murmur, irregularly irregular Abdomen: Present: Normal bowel sounds, soft, nontender Extremity: Present: no pedal edema Skin Exam: Present: normal color, warm/dry Appearance: Present: appropriate appearance Eye contact: Present: cooperative Diagnostic Studies: Abnormal Lab Results 12/23/18 Range/Units 06:58 Creatinine 1.59 H D (0.4-1.4) mg/dL Laboratory Results Creatinine 1.59 mg/dL (0.4-1.4) H D 12/23/18 06:58 Assessment/Plan - Narrative Narrative: This is an 78-year-old male with past medical history of myocardial infarct, CHF, diabetes who presents from a rehab facility with complaints of shortness of breath for 2 days. He was found to have CT angio showing large bilateral pleural effusions and right upper lobe acute pulmonary embolisms. He has been admitted for management of congestive heart failure and pulmonary embolisms. - Assessment/Plan (1) Congestive heart failure Assessment: CT angios shows large bilateral pleural effusions. Continue with diuresis, monitoring of BMP, eyes and nose, daily weights, oxygen as needed and fluid restriction. Problem: Chronic Qualifiers: Heart failure type: unspecified Heart failure chronicity: unspecified Qualified Code(s): I50.9 - Heart failure, unspecified (2) Pulmonary emboli Assessment: He was noted to have low right upper lobe segmental and subsegmental pulmonary embolisms continue with Lovenox twice daily. Problem: Acute Qualifiers: Pulmonary embolism type: other Chronicity: acute Acute cor pulmonale presence: without acute cor pulmonale Qualified Code(s): I26.99 - Other pulmonary embolism without acute cor pulmonale (3) Hypertension Assessment: Stable continue home medications. Problem: Chronic (4) Diabetes Assessment: Resume home medications. Monitor fingersticks before meals and before bed. Diabetic diet. 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 Unsure if this is new or paroxysmal. Patient states he has a history of skipping heartbeats. Continue with metoprolol and anticoagulation. He also states that one part of his heart does not contract appropriately since his heart attack. Problem: Acute
[2018-12-23] MEDS: ASPIRIN 81 MG TABLET.DR PO SCH (11:36)
[2018-12-23] MEDS: FINASTERIDE 5 MG TABLET PO SCH (11:36)
[2018-12-23] MEDS: BUMETANIDE 1 MG TABLET PO SCH ×2 (11:36→23:43)
[2018-12-23] MEDS: METOPROLOL SUCCINATE 25 MG TABLET.SA PO SCH (11:37)
[2018-12-23] MEDS: FUROSEMIDE 10 MG/ML VIAL IV SCH (11:37)
[2018-12-23] MEDS: INSULIN ASPART PROT/INSULN ASP 100 UNITS/ML VIAL SC SCH ×2 (11:51→17:20)
[2018-12-23] MEDS: BUPROPION 100 MG PO SCH ×2 (11:52→12:07)
[2018-12-23] MEDS ORDERED: INSULIN ASPART 100 UNITS/ML VIAL SC SCH (12:00)
[2018-12-23] MEDS: INSULIN ASPART 100 UNITS/ML VIAL SC SCH ×2 (12:06→17:18)
[2018-12-23] MEDS ORDERED: DEXTROSE 50%-WATER 50 ML SYRG IV ONE (15:51)
[2018-12-23] MEDS: ENOXAPARIN SODIUM 30 MG, ENOXAPARIN SODIUM 60 MG SC SCH ×2 (15:57)
[2018-12-24] MEDS: ENOXAPARIN SODIUM 30 MG, ENOXAPARIN SODIUM 60 MG SC SCH ×4 (04:05→16:56)
[2018-12-24 05:35] LABS: Hematocrit 33.8 % (42.0-52.0); Hemoglobin 10.5 gm/dL (13.5-18.0); Mean Cell Volume 95.8 fl (78-100); Mean Corpuscular Hemoglobin 29.7 pg (27-31); Mean Corpuscular Hgb Conc 31.1 g/dl (32-36); Mean Platelet Volume 9.9 fl (8-11.3); Neutrophil # 2.4 K/mm3 (1.3-6.0); Neutrophil % 47.4 % (42-75.0); Platelet Count 262 K/mm3 (150-450); Red Blood Count 3.53 M/mm3 (4.7-6.0); Red Cell Distribution Width 17.9 % (11.5-14.0); White Blood Count 5.1 K/mm3 (4.0-10.5)
[2018-12-24 05:48] LABS: Albumin * 2.6 gm/dl (3.4-5.0); BUN/Creatinine Ratio 10.8 (9.0-21.6); Bilirubin, Total 0.5 mg/dL (0.0-1.1); Ca. Corrected For Albumin 9.6 mg/dL (8.4-10.2); Calcium * 8.8 mg/dL (7.9-10.9); Carbon Dioxide 34.9 mmol/L (24-32.6); Potassium 3.9 mmol/L (3.4-4.6); Total Protein 6.7 gm/dL (6.2-8.2)
[2018-12-24] MEDS: INSULIN ASPART 100 UNITS/ML VIAL SC SCH ×3 (07:07→17:00)
[2018-12-24] MEDS: BUMETANIDE 1 MG TABLET PO SCH ×2 (09:06→21:10)
[2018-12-24] MEDS: ASPIRIN 81 MG TABLET.DR PO SCH (09:06)
[2018-12-24] MEDS: FUROSEMIDE 10 MG/ML VIAL IV SCH (09:06)
[2018-12-24] MEDS: BUPROPION 100 MG PO SCH (09:07)
[2018-12-24] MEDS: METOPROLOL SUCCINATE 25 MG TABLET.SA PO SCH (09:07)
[2018-12-24] MEDS: FINASTERIDE 5 MG TABLET PO SCH (09:07)
[2018-12-24] MEDS: INSULIN ASPART PROT/INSULN ASP 100 UNITS/ML VIAL SC SCH ×2 (09:39→17:00)
--- NOTE | 2018-12-24 12:23 | PN ---
Subjective - Date and Time Seen Date: 12/24/18 Time: 12:16 Subjective Narrative: Patient states he feels good. He stated that this morning he felt short of breath when he woke up but does not have shortness of breath at this time. He is tolerating his diet. Objective - Review of Systems Generalized/Overall Review: Denies: Fever EENTM: Denies: Eye Pain Respiratory: Reports: Orthopnea - I think so Cardiac: Denies: Chest Pain, Edema Abdominal: Denies: Nausea, Vomiting Musculoskeletal Complaints: Denies: Joint Pain Misc: All systems neg except as marked - Vitals Vitals: Last Vital Signs Temp 36.4 C 12/24/18 10:40 Pulse 86 12/24/18 10:40 Resp 20 12/24/18 10:40 BP 114/89 12/24/18 10:40 Pulse Ox 95 12/24/18 10:40 - Abnormal Lab Findings Abnormal Lab Findings: Abnormal Lab Results 12/23/18 12/24/18 12/24/18 Range/Units 15:50 05:15 05:15 RBC 3.53 L (4.7-6.0) M/mm3 Hgb 10.5 L (13.5-18.0) gm/dL Hct 33.8 L (42.0-52.0) % MCHC 31.1 L (32-36) g/dl RDW 17.9 H (11.5-14.0) % Monocytes % 12.3 H (0.0-9) % Eosinophils % 3.8 H (0.0-3.0) % Basophils % 1.8 H (0.0-1.0) % Carbon Dioxide 34.9 H (24-32.6) mmol/L Creatinine 1.66 H (0.4-1.4) mg/dL Est GFR (Non-Af Amer) 43 L D (60-130) mL/min Random Glucose 34 L* (70-110) mg/dL ALT 14 L (19-67) U/L Alkaline Phosphatase 198 H (50-170) U/L Albumin 2.6 L (3.4-5.0) gm/dl - Exam Constitutional: Present: Alert, Cooperative, Well developed, Well nourished, No distress ENT Exam: Present: hearing grossly normal Neck: Present: supple, trachea midline. Absent: lymphadenopathy (R), lymphadenopathy (L) Respiratory: Present: lungs clear. Absent: no respiratory distress, no accessory muscle use, crackles, rhonchi, wheezing Cardiovascular/Chest: Present: regular rate, rhythm, no murmur Abdomen: Present: Normal bowel sounds, soft, nontender Extremity: Present: no pedal edema, other - Status post bilateral BKA. Skin Exam: Present: normal color, warm/dry Assessment/Plan - Problems/Diagnosis (1) Congestive heart failure Problem: Chronic Qualifiers: Heart failure type: unspecified Heart failure chronicity: unspecified Q ualified Code(s): I50.9 - Heart failure, unspecified Narrative: Symptoms improved, lungs are clear to auscultation. Continue with patient's home medication, Bumex. We will discontinue IV Lasix due to increasing creatinine this morning. Attempt to wean him off of his oxygen. (2) Pulmonary emboli Problem: Acute Qualifiers: Pulmonary embolism type: other Chronicity: acute Acute cor pulmonale presence: without acute cor pulmonale Qualified Code(s): I26.99 - Other pulmonary embolism without acute cor pulmonale Narrative: Continue with Lovenox twice daily. (3) Hypertension Problem: Chronic Qualifiers: Hypertension type: essential hypertension Qualified Code(s): I10 - Ching costa (primary) hypertension Narrative: Well-controlled continue home medications. (4) Diabetes Problem: Chronic Qualifiers: Diabetes mellitus type: type 2 Diabetes mellitus intermodal dispatcher insulin use: with intermodal dispatcher use Narrative: Stable continue home medications. (5) A-fib Problem: Acute Narrative: Rate is controlled continue home medications and anticoagulation.
[2018-12-25] MEDS: ENOXAPARIN SODIUM 30 MG, ENOXAPARIN SODIUM 60 MG SC SCH ×2 (05:06)
[2018-12-25 05:39] LABS: Hematocrit 34.1 % (42.0-52.0); Hemoglobin 10.7 gm/dL (13.5-18.0); Mean Cell Volume 96.6 fl (78-100); Mean Corpuscular Hemoglobin 30.3 pg (27-31); Mean Corpuscular Hgb Conc 31.4 g/dl (32-36); Mean Platelet Volume 10.4 fl (8-11.3); Platelet Count 263 K/mm3 (150-450); Red Blood Count 3.53 M/mm3 (4.7-6.0); White Blood Count 5.5 K/mm3 (4.0-10.5)
[2018-12-25 05:41] LABS: Albumin * 2.6 gm/dl (3.4-5.0); Anion Gap 11.5 mmol/L (6.8-13.8); BUN/Creatinine Ratio 11.8 (9.0-21.6); Bilirubin, Total 0.5 mg/dL (0.0-1.1); Ca. Corrected For Albumin 9.4 mg/dL (8.4-10.2); Calcium * 8.6 mg/dL (7.9-10.9); Carbon Dioxide 35.4 mmol/L (24-32.6); Potassium 3.9 mmol/L (3.4-4.6); Total Protein 6.7 gm/dL (6.2-8.2)
[2018-12-25] MEDS: INSULIN ASPART 100 UNITS/ML VIAL SC SCH ×2 (07:11→11:48)
[2018-12-25] MEDS: BUMETANIDE 1 MG TABLET PO SCH (08:43)
[2018-12-25] MEDS: METOPROLOL SUCCINATE 25 MG TABLET.SA PO SCH (08:43)
[2018-12-25] MEDS: ASPIRIN 81 MG TABLET.DR PO SCH (08:43)
[2018-12-25] MEDS: FINASTERIDE 5 MG TABLET PO SCH (08:43)
[2018-12-25] MEDS: BUPROPION 100 MG PO SCH (08:44)
[2018-12-25] MEDS: INSULIN ASPART PROT/INSULN ASP 100 UNITS/ML VIAL SC SCH (08:50)
--- NOTE | 2018-12-25 12:12 | DS ---
(1) Congestive heart failure Diagnosis(s): Symptoms improved with diuresis I will send him out on his home dose of Bumex. Problem: Chronic Qualifiers: Heart failure type: unspecified Heart failure chronicity: unspecified Qualified Code(s): I50.9 - Heart failure, unspecified (2) Pulmonary emboli Diagnosis(s): He was found to have right upper lobe segmental and subsegmental pleural effusions and was treated with Lovenox while in the hospital. I will transition him to Xarelto starting at 15 mg twice a day for 21 days followed by 20 mg daily. Problem: Acute Qualifiers: Pulmonary embolism type: other Chronicity: acute Acute cor pulmonale presence: without acute cor pulmonale Qualified Code(s): I26.99 - Other pulmonary embolism without acute cor pulmonale (3) Hypertension Diagnosis(s): Stable continue with home medications. Problem: Chronic Qualifiers: Hypertension type: essential hypertension Qualified Code(s): I10 - Es sential (primary) hypertension (4) Diabetes Diagnosis(s): Stable continue home medications. Problem: Chronic Qualifiers: Diabetes mellitus type: type 2 Diabetes mellitus half-way insulin use: with half-way use (5) A-fib Diagnosis(s): Stable continue home medications. Problem: Acute Description of Stay: 78-year-old male with past medical history of congestive heart failure, hypertension, myocardial infarct, diabetes status post bilateral BKA presents from a rehab facility with complaints of shortness of breath for the past 2 days he was found to have CT angios with acute pulmonary embolism in the right upper lobe involving segmental and subsegmental branches as well as large bilateral pleural effusions with associated bibasilar compressive atelectasis. Patient was admitted and started on CHF protocol and Lovenox twice daily. Symptoms improved and he was stabilized and will be discharged back to the rehab facility. Procedures Performed: none Results and Findings: Lab Pending Results 12/23/18 06:58: Creatinine 1.59 H D 12/23/18 15:50: Random Glucose 34 L* 12/24/18 05:15: WBC 5.1, RBC 3.53 L, Hgb 10.5 L, Hct 33.8 L, MCV 95.8, MCH 29.7, MCHC 31.1 L, RDW 17.9 H, Plt Count 262, MPV 9.9, Immature Gran % (Auto) 0.40, Immature Gran # (Auto) 0.02, Neutrophils % 47.4, Lymphocytes % 34.3, Monocytes % 12.3 H, Eosinophils % 3.8 H, Basophils % 1.8 H, Nucleated RBC % 0.0, Neutrophils # 2.4, Lymphocytes # 1.73, Monocytes # 0.6, Eosinophils # 0.2, Absolute Basophils 0.1 12/24/18 05:15: Sodium 140, Plasma Sodium 140, Potassium 3.9 D, Chloride 100, Carbon Dioxide 34.9 H, Anion Gap 9.0, BUN 18 D, Creatinine 1.66 H, Est GFR (Non-Af Amer) 43 L D, BUN/Creatinine Ratio 10.8, Random Glucose 90 D, Calcium 8.8, Calcium Adj for Albumin 9.6, Total Bilirubin 0.5, AST 21, ALT 14 L, Alkaline Phosphatase 198 H, Total Protein 6.7, Albumin 2.6 L 12/25/18 05:05: WBC 5.5, RBC 3.53 L, Hgb 10.7 L, Hct 34.1 L, MCV 96.6, MCH 30.3, MCHC 31.4 L, RDW 18.0 H, Plt Count 263, MPV 10.4, Immature Gran % (Auto) 0.40, Immature Gran # (Auto) 0.02, Neutrophils % 54.0, Lymphocytes % 28.8, Monocytes % 11.7 H, Eosinophils % 3.5 H, Basophils % 1.6 H, Nucleated RBC % 0.0, Neutrophils # 3.0, Lymphocytes # 1.58, Monocytes # 0.6, Eosinophils # 0.2, Absolute Basophils 0.1 12/25/18 05:05: Sodium 140, Plasma Sodium 141, Potassium 3.9, Chloride 97, Carbon Dioxide 35.4 H, Anion Gap 11.5, BUN 19, Creatinine 1.61 H, Est GFR (Non- Af Amer) 44 L, BUN/Creatinine Ratio 11.8, Random Glucose 143 H D, Calcium 8.6, Calcium Adj for Albumin 9.4, Total Bilirubin 0.5, AST 23, ALT 14 L, Alkaline P hosphatase 202 H, Total Protein 6.7, Albumin 2.6 L Discharge Location: [facility] Disposition: SNF Condition: Fair Level of Care: SNF Discharge Activity: Activity as tolerated Discharge Diet: Low salt Shelter Therapy: Physicial Therapy, Occupation Therapy Additional Patient Instructions (free text): For treatment of the pulmonary embolism, take Xarelto 15 mg twice a day for 21 days, followed by Xarelto 20 mg once daily. Prescriptions (Any new or edited meds): Rivaroxaban [Xarelto] 15 mg PO BID 21 Days #42 tab Rivaroxaban [Xarelto] 20 mg PO DAILY #30 tab Complete Home Medications List: Complete Home Medication List: Aspirin [Aspirin EC] 81 mg PO DAILY 08/01/18 Finasteride [Proscar] 5 mg PO DAILY 08/01/18 Insulin Aspart Prot/Insuln Asp [Novolog Mix 70/30] 16 units SQ QPM 08/01/18 Insulin Aspart Prot/Insuln Asp [Novolog Mix 70/30] 30 units SC QAM 08/01/18 Insulin Aspart [Novolog] 100 units SC TID 11/14/18 Bumetanide 2 mg PO BID 12/23/18 Bupropion HCl [Wellbutrin Sr] 100 mg PO DAILY 12/23/18 Metoprolol Succinate 25 mg PO DAILY 12/23/18 Rivaroxaban [Xarelto] 15 mg PO BID 21 Days #42 tab 12/25/18 Rivaroxaban [Xarelto] 20 mg PO DAILY #30 tab 12/25/18
[2018-12-25 13:01] VITALS: BP 120/61
== END 2018-12-25 13:17 | DRG 175 ==
LOC: ER 02:14 → MS 04:03
PROVIDERS: ADMIT Internal Medicine; ATTEND Internal Medicine
CPT/HCPCS: 36415; 71275; 80053; 82565; 82947; 85025; 87081; 93005; 96372; 99285

== ENCOUNTER 2019-05-13 18:48 | Inpatient (IN) ==
--- NOTE | 2019-05-13 19:07 | ERNOTE ---
Dyspnea - Date Date of Service: 05/13/19 - General Presenting Symptoms: shortness of breath Time Seen by Provider: 05/13/19 19:07 Source: patient, family, other - patient is TANGIRNAQ and poor historian Exam Limitations: no limitations - Immun/Allergies/Home Medications Immunizations: IMMUNIZATION HX Immunizations Up to Date Yes History of Influenza Vaccine Yes Hx Pneumococcal Vaccination Yes Allergies/Adverse Reactions: Allergies codeine Allergy (Unknown, Verified 04/05/19 14:10) Unknown NSAIDS (Non-Steroidal Anti-Inflamma Allergy (Unknown, Verified 04/05/19 14:10) Unknown cortisone [Cortisone] Adverse Reaction (Mild, Verified 04/05/19 14:10) CAUSES HIM TO "LOSE LEFT LEG" Oxtzree-Mdf-Yqk Reductase Inhibitor Adverse Reaction (Unknown, Verified 04/05/19 14:10) "Legs quit functioning" warfarin [Warfarin] Adverse Reaction (Unknown, Verified 04/05/19 14:10) Redness to scalp Home Medications: HOME MEDICATIONS Aspirin [Aspirin EC] 81 mg PO DAILY 08/01/18 [Last Taken 07/31/18 19:00] Finasteride [Proscar] 5 mg PO DAILY 08/01/18 [Last Taken Unknown] Insulin Aspart Prot/Insuln Asp [Novolog Mix 70/30] 16 units SQ QPM 08/01/18 [Last Taken Unknown] Insulin Aspart Prot/Insuln Asp [Novolog Mix 70/30] 30 units SC QAM 08/01/18 [Last Taken Unknown] Insulin Aspart [Novolog] 100 units SC TID 11/14/18 [Last Taken Unknown] Bumetanide 2 mg PO BID 12/23/18 [Last Taken Unknown] Bupropion HCl [Wellbutrin Sr] 100 mg PO DAILY 12/23/18 [Last Taken Unknown] Metoprolol Succinate 50 mg PO DAILY 12/23/18 [Last Taken Unknown] O2 See Dose Instructions .ROUTE .MEDSUPPLY #1 ea 02/08/19 [Last Taken Unknown] losartan 25 mg tablet 25 mg PO DAILY #30 tab 02/08/19 [Last Taken Unknown] Apixaban [Eliquis] 5 mg PO DAILY 05/13/19 [Last Taken Unknown] - History of Present Illness Narrative: The patient is a 79 year old male who presents for dyspnea which has been present for 2 days. There are associated symptoms of intermitten cough, nausea and emesis x1 yesterday. The patient denies pain. There are no alleviating factors. There are aggravating factors of activity. Previous treatments have included: home oxygen. The past medical history includes: DM, HTN, CHF, TIA, COPD and CABG. The social history is positive for former smoker. The patient has had no ill contacts. Review of Systems - Review of Systems Constitutional: Present: chills, fatigue. Absent: fever EYE: Present: no symptoms reported ENT: Present: no symptoms reported. Absent: ear pain, nasal drainage, sore throat Respiratory: Present: shortness of breath, cough Cardiology: Absent: chest pain Gastrointestinal/Abdominal: Present: nausea, vomiting. Absent: diarrhea, abdominal pain Genitourinary: Present: no symptoms reported. Absent: dysuria, decreased urinary output Musculoskeletal: Present: no symptoms reported Skin: Present: no symptoms reported Neurological: Present: no symptoms reported Hematologic/Lymphatic: Present: easy bruising, easy bleeding All Other Systems: All systems neg except as marked Medical History (Updated 05/13/19 @ 21:15 by ZELDA Ponce) COPD (chronic obstructive pulmonary disease) (Chronic) NSTEMI (non-ST elevated myocardial infarction) (Resolved) CHF (congestive heart failure) (Chronic) Hypoxemia (Chronic) O2 sat 88% while walking in. Improved to 93 % at rest. History of left below knee amputation (Acute) History of right below knee amputation (Acute) Congestive heart failure (CHF) (Acute) Myocardial infarct, old (Acute) Hypertension (Chronic) Diabetes (Chronic) Foot ulcer TIA (transient ischemic attack) Surgical History: Surgical History (Updated 12/25/18 @ 12:34 by Val Reeder MD) Status post bilateral below knee amputation (Acute) History of heart artery stent (Acute) History of coronary artery bypass graft (Acute) x5 Family History: Family History (Last Reviewed 05/13/19 @ 19:19 by ZELDA Ponce) Mother Diabetes Father Diabetes Myocardial infarction Brother Esophageal cancer Social History: Preferred Language Hebrew Do you have any uatsdin or Congregation cultural preference? Smoking Status Former smoker Alcohol Use rarely Drug Use none (Last Updated 04/05/19 @ 19:04 by Kei Taylor DO) No Social History Section defined Physical Exam - Physical Exam General Appearance: Present: wd/wn, alert, moderate distress Head Exam: Present: normal inspection Eye Exam: Normal inspection: bilateral Neck: Present: normal inspection Respiratory: Present: respiratory distress - mild, accessory muscle use, decreased breath sounds - left lower lung Cardiovascular/Chest: Present: regular rate, rhythm Gastrointestinal/Abdominal: Present: normal bowel sounds, nondistended, soft, no organomegaly, tenderness - epigastric and RUQ. Absent: guarding, rebound, mass Neurological Exam: Present: alert, oriented, normal mood/affect Skin Exam: Present: normal color, warm/dry Progress - Date and Time Seen: Date and Time: 05/13/19 20:25 Discussed case with . Notified of blood pressure change to 107/43. Discussed hx of CHF as well as chronic pleural effusion to left lower lung. Patient takes Bumex for CHF as well as discussed kidney function. 05/13/19 21:30 Patients reports patient was given 10 units SQ of regular insulin just HOME HEALTH AID. - Results and Orders Patient's Lab Results:: I have reviewed the patient's lab results. - Vital Signs Patient's Vital Signs:: I have reviewed the patient's vital signs. Vital Signs: Vital Signs 05/13/19 18:57 Temperature 38.6 C H Pulse Rate 95 Respiratory Rate 30 H Blood Pressure 135/80 O2 Sat by Pulse Oximetry 95 - EKG EKG #1 EKG: NSR, nonspecific ST T wave changes EKG read: Reviewed by me - X-Ray X-Ray #1 X-Ray: chest Interpretation: Reviewed by me X-ray Comments: chronic left lower lung pleural effusion, haziness to right upper lung and left mid lung superior to effusion suggestive of pneumonia. - Progress/Reassessment Chief Complaint: Dyspnea Departure Clinical Impression: Pneumonia Qualifiers: Pneumonia type: due to unspecified organism Laterality: bilateral Lung location: unspecified part of lung Qualified Code(s): J18.9 - Pneumonia, unspecified organism Sepsis Qualifiers: Sepsis type: sepsis due to unspecified organism Qualified Code(s): A41.9 - Sepsis, unspecified organism Diabetes mellitus Qualifiers: Diabetes mellitus type: type 2 Diabetes mellitus penitentiary insulin use: with penitentiary use Diabetes mellitus complication status: with hyperglycemia Qualified Code(s): E11.65 - Type 2 diabetes mellitus with hyperglycemia CHF (congestive heart failure) Qualifiers: Heart failure type: unspecified Heart failure chronicity: acute on chronic Qualified Code(s): I50.9 - Heart failure, unspecified CRF (chronic renal failure) Qualifiers: Chronic kidney disease stage: unspecified stage Qualified Code(s): N18.9 - Chronic kidney disease, unspecified - Departure Disposition: Still a patient Condition: Stable
[2019-05-13] MEDS ORDERED: ACETAMINOPHEN 500 MG TABLET PO ONE (19:16)
[2019-05-13 19:23] LABS: Hematocrit 38.6 % (42.0-52.0); Hemoglobin 12.5 gm/dL (13.5-18.0); Mean Cell Volume 90.8 fl (78-100); Mean Corpuscular Hemoglobin 29.4 pg (27-31); Mean Corpuscular Hgb Conc 32.4 g/dl (32-36); Mean Platelet Volume 10.6 fl (8-11.3); Neutrophil # 2.7 K/mm3 (1.3-6.0); Neutrophil % 76.2 % (42-75.0); Platelet Count 206 K/mm3 (150-450); Red Blood Count 4.25 M/mm3 (4.7-6.0); Red Cell Distribution Width 14.5 % (11.5-14.0); White Blood Count 3.5 K/mm3 (4.0-10.5)
[2019-05-13] MEDS ORDERED: SODIUM CHLORIDE IV ONE (19:46)
[2019-05-13 19:49] LABS: Albumin * 3.2 gm/dl (3.4-5.0); Anion Gap 15.5 mmol/L (6.8-13.8); BUN/Creatinine Ratio 17.7 (9.0-21.6); Bilirubin, Total 0.7 mg/dL (0.0-1.1); Ca. Corrected For Albumin 9.2 mg/dL (8.4-10.2); Calcium * 8.9 mg/dL (7.9-10.9); Carbon Dioxide 26.9 mmol/L (24-32.6); Potassium 4.4 mmol/L (3.4-4.6); Total Protein 7.6 gm/dL (6.2-8.2)
[2019-05-13 19:53] LABS: Troponin I 0.08 ng/mL (0.00-0.10)
[2019-05-13 19:59] LABS: Urine Bilirubin Negative (NEGATIVE); Urine Blood 25 /ul (NEGATIVE); Urine Ketone Negative (NEGATIVE); Urine Nitrite Negative (NEGATIVE); Urine Protein Negative (NEGATIVE); Urine Urobilinogen Normal (NORMAL)
[2019-05-13 20:06] LABS: Urine Appearance Clear (CLEAR); Urine Bacteria TRACE; Urine Color Yellow; Urine RBC 0-5 /hpf (0-5); Urine WBC None Seen /hpf (0-5)
[2019-05-13] MEDS ORDERED: AZITHROMYCIN 250 MG TABLET PO ONE (20:12)
[2019-05-13] MEDS ORDERED: cefTRIAXone SODIUM 1,000 MG/100 ML BAG IV ONE (20:12)
[2019-05-13] MEDS ORDERED: AZITHROMYCIN 250 MG TABLET ONE (21:26)
[2019-05-13] MEDS ORDERED: INSULIN ASPART PROT/INSULN ASP 100 UNITS/ML VIAL SC SCH (22:08)
[2019-05-13] MEDS ORDERED: ALBUTEROL SULFATE/IPRATROPIUM 3 ML NEBU IH PRN (22:10)
[2019-05-13] MEDS ORDERED: ACETAMINOPHEN 500 MG TABLET PO PRN (22:13)
--- NOTE | 2019-05-13 22:16 | HP ---
Chief Complaint - Chief Complaint Date of Service: 05/13/19 Time of Service: 22:06 Chief Complaint: Shortness of breath, cough, lactic acidosis History of Present Illness: 79-year-old male presented to the [facility] with shortness of breath, increased swelling in his lower extremities, productive cough. Initial lab work showed him to have a decreased white count at 3.5 with a left shift at 76.2. He had an initial lactic acid of 3.8 and an elevated BNP at 13,522. Patient states this all started roughly 3 days ago and it is just worsened each day. Initially patient had an elevated temperature 38.6 which has returned to normal since being moved to the floor. Patient was also found to be tachypneic and requiring oxygen administration to maintain sats which he normally does not have to use. Of note patient was found to have sugar of 442. His kidney function is below his baseline with a GFR of 35 and a creatinine of 1.98. He had greater than the thousand glucose in his urine with some blood also in his urine. Rest of his lab work within normal limits. Patient was admitted to the floor as an inpatient for CHF exacerbation, pneumonia, hyperglycemia, with associated lactic acidosis. Medical History (Updated 05/13/19 @ 22:16 by Harinder Noe DO) COPD (chronic obstructive pulmonary disease) (Chronic) NSTEMI (non-ST elevated myocardial infarction) (Resolved) CHF (congestive heart failure) (Chronic) Hypoxemia (Chronic) O2 sat 88% while walking in. Improved to 93 % at rest. History of left below knee amputation (Acute) History of right below knee amputation (Acute) Congestive heart failure (CHF) (Acute) Myocardial infarct, old (Acute) Hypertension (Chronic) Diabetes (Chronic) Foot ulcer TIA (transient ischemic attack) Surgical History: Surgical History (Updated 05/13/19 @ 22:16 by Harinder Noe DO) Status post bilateral below knee amputation (Acute) History of heart artery stent (Acute) History of coronary artery bypass graft (Acute) x5 Family History: Family History (Last Reviewed 05/13/19 @ 19:19 by ZELDA Ponce) Mother Diabetes Father Diabetes Myocardial infarction Brother Esophageal cancer Social History: Preferred Language Mongolian Do you have any yazdanism or Nondenominational cultural preference? Smoking Status Former smoker Alcohol Use rarely Drug Use none (Last Updated 04/05/19 @ 19:04 by Kei Taylor DO) No Social History Section defined Review Of Systems (GEN) - Review of Systems Generalized/Overall Review: Present: Fever. Absent: Weakness, Chills EENTM: Present: No Symptoms Reported Respiratory: Present: Cough, Shortness of Breath Cardiac: Present: Edema. Absent: Chest Pain, Palpitations Abdominal: Absent: Nausea, Vomiting Genitourinary: Present: No Symptoms Reported, Polyuria Musculoskeletal: Present: No Symptoms Reported Neurological: Present: No Symptoms Reported Skin: Present: No Symptoms Reported Immunizations: IMMUNIZATION HX Immunizations Up to Date Yes History of Influenza Vaccine Yes Hx Pneumococcal Vaccination Yes Allergies/Adverse Reactions: Allergies Allergy/AdvReac Type Severity Reaction Status Date / Time codeine Allergy Unknown Unknown Verified 04/05/19 14:10 NSAIDS (Non-Steroidal Allergy Unknown Unknown Verified 04/05/19 14:10 Anti-Inflamma cortisone [Cortisone] AdvReac Mild CAUSES HIM Verified 04/05/19 14:10 TO "LOSE LEFT LEG" [id number]-Kof-Jpt Reductase AdvReac Unknown "Legs quit Verified 04/05/19 14:10 Inhibitor functioning" warfarin [Warfarin] AdvReac Unknown Redness to Verified 04/05/19 14:10 scalp Home Medications: HOME MEDICATIONS Aspirin [Aspirin EC] 81 mg PO DAILY 08/01/18 [Last Taken 07/31/18 19:00] Finasteride [Proscar] 5 mg PO DAILY 08/01/18 [Last Taken Unknown] Insulin Aspart Prot/Insuln Asp [Novolog Mix 70/30] 15 units SC QPM 08/01/18 [Last Taken Unknown] Insulin Aspart Prot/Insuln Asp [Novolog Mix 70/30] 40 units SQ QAM 08/01/18 [Last Taken Unknown] Bumetanide 2 mg PO BID 12/23/18 [Last Taken Unknown] Metoprolol Succinate 50 mg PO DAILY 12/23/18 [Last Taken Unknown] O2 See Dose Instructions .ROUTE .MEDSUPPLY #1 ea 02/08/19 [Last Taken Unknown] losartan 25 mg tablet 25 mg PO DAILY #30 tab 02/08/19 [Last Taken Unknown] Apixaban [Eliquis] 5 mg PO DAILY 05/13/19 [Last Taken Unknown] Exam - Exam Vital Signs: Vital Signs - Last Taken Temp 37.3 C 05/13/19 20:09 Pulse 77 05/13/19 20:25 Resp 20 05/13/19 20:25 BP 107/43 05/13/19 20:25 Pulse Ox 96 05/13/19 20:25 Constitutional: Present: Alert, Oriented x3, Cooperative, No distress ENT Exam: Present: hearing grossly normal. Absent: nasal congestion, nasal drainage Eye Exam: bilateral eye: normal inspection Neck: Present: non-tender, supple, normal inspection Respiratory: Present: no respiratory distress, decreased breath sounds - Bilateral bases Cardiovascular/Chest: Present: normal peripheral pulses, no murmur, irregularly irregular Abdomen: Present: Normal bowel sounds, soft, nontender /Rectal: Present: Exam deferred Extremity: Present: other - Bilateral BKA Skin Exam: Present: normal color, warm/dry Appearance: Present: appropriate appearance, appropriate insight Eye contact: Present: cooperative, good eye contact Thoughts: Present: normal thought pattern, normal mood /affect Diagnostic Studies: Abnormal Lab Results 05/13/19 05/13/19 05/13/19 Range/Units 19:20 19:20 19:20 WBC 3.5 L (4.0-10.5) K/mm3 RBC 4.25 L (4.7-6.0) M/mm3 Hgb 12.5 L (13.5-18.0) gm/dL Hct 38.6 L (42.0-52.0) % RDW 14.5 H (11.5-14.0) % Neutrophils % 76.2 H (42-75.0) % Lymphocytes % 12.9 L (20-51) % Basophils % 1.4 H (0.0-1.0) % Lymphocytes # 0.45 L (1.5-3.5) k/mm3 Sodium 131 L (132-142) mmol/L Chloride 93 L (97-106) mmol/L Anion Gap 15.5 H (6.8-13.8) mmol/L BUN 35 H (6-23) mg/dL Creatinine 1.98 H (0.4-1.4) mg/dL Est GFR (Non-Af Amer) 35 L (60-130) mL/min Random Glucose 442 H (70-110) mg/dL Lactic Acid, Venous 3.8 H* (0.4-2.0) mmol/L ALT 16 L (19-67) U/L B-Natriuretic Peptide 65711 H (5-650) pg/mL Albumin 3.2 L (3.4-5.0) gm/dl Urine Glucose (UA) (NEGATIVE) mg/dL Urine Blood (NEGATIVE) /ul 05/13/19 Range/Units 19:54 WBC (4.0-10.5) K/mm3 RBC (4.7-6.0) M/mm3 Hgb (13.5-18.0) gm/dL Hct (42.0-52.0) % RDW (11.5-14.0) % Neutrophils % (42-75.0) % Lymphocytes % (20-51) % Basophils % (0.0-1.0) % Lymphocytes # (1.5-3.5) k/mm3 Sodium (132-142) mmol/L Chloride (97-106) mmol/L Anion Gap (6.8-13.8) mmol/L BUN (6-23) mg/dL Creatinine (0.4-1.4) mg/dL Est GFR (Non-Af Amer) (60-130) mL/min Random Glucose (70-110) mg/dL Lactic Acid, Venous (0.4-2.0) mmol/L ALT (19-67) U/L B-Natriuretic Peptide (5-650) pg/mL Albumin (3.4-5.0) gm/dl Urine Glucose (UA) >=1000 H (NEGATIVE) mg/dL Urine Blood 25 H (NEGATIVE) /ul Laboratory Results WBC 3.5 K/mm3 (4.0-10.5) L 05/13/19 19:20 RBC 4.25 M/mm3 (4.7-6.0) L 05/13/19 19:20 Hgb 12.5 gm/dL (13.5-18.0) L 05/13/19 19:20 Hct 38.6 % (42.0-52.0) L 05/13/19 19:20 MCV 90.8 fl (78-100) 05/13/19 19:20 MCH 29.4 pg (27-31) 05/13/19 19:20 MCHC 32.4 g/dl (32-36) 05/13/19 19:20 RDW 14.5 % (11.5-14.0) H 05/13/19 19:20 Plt Count 206 K/mm3 (150-450) 05/13/19 19:20 MPV 10.6 fl (8-11.3) 05/13/19 19:20 Immature Gran % (Auto) 0.30 % (0.001-0.429) 05/13/19 19:20 Immature Gran # (Auto) 0.01 K/mm3 (0.000-0.0310) 05/13/19 19:20 76.2 % (42-75.0) H 05/13/19 19:20 12.9 % (20-51) L 05/13/19 19:20 8.9 % (0.0-9) 05/13/19 19:20 0.3 % (0.0-3.0) 05/13/19 19:20 1.4 % (0.0-1.0) H 05/13/19 19:20 Nucleated RBC % 0.0 k/mm3 (0-1) 05/13/19 19:20 2.7 K/mm3 (1.3-6.0) 05/13/19 19:20 0.45 k/mm3 (1.5-3.5) L 05/13/19 19:20 0.3 k/mm3 (0.0-1.0) 05/13/19 19:20 0.0 k/mm3 (0.0-0.7) 05/13/19 19:20 Absolute Basophils 0.1 k/mm3 (0.0-0.1) 05/13/19 19:20 Sodium 131 mmol/L (132-142) L 05/13/19 19:20 136 mmol/L (130-142) 05/13/19 19:20 Potassium 4.4 mmol/L (3.4-4.6) 05/13/19 19:20 Chloride 93 mmol/L (97-106) L 05/13/19 19:20 Carbon Dioxide 26.9 mmol/L (24-32.6) 05/13/19 19:20 15.5 mmol/L (6.8-13.8) H 05/13/19 19:20 BUN 35 mg/dL (6-23) H 05/13/19 19:20 1.98 mg/dL (0.4-1.4) H 05/13/19 19:20 Est GFR (Non-Af Amer) 35 mL/min (60-130) L 05/13/19 19:20 17.7 (9.0-21.6) 05/13/19 19:20 442 mg/dL (70-110) H 05/13/19 19:20 3.8 mmol/L (0.4-2.0) H* 05/13/19 19:20 Calcium 8.9 mg/dL (7.9-10.9) 05/13/19 19:20 Calcium Adj for Albumin 9.2 mg/dL (8.4-10.2) 05/13/19 19:20 0.7 mg/dL (0.0-1.1) 05/13/19 19:20 AST 18 U/L (0-48) 05/13/19 19:20 ALT 16 U/L (19-67) L 05/13/19 19:20 138 U/L (50-170) 05/13/19 19:20 0.080 ng/mL (0.00-0.10) 05/13/19 19:20 B-Natriuretic Peptide 10557 pg/mL (5-650) H 05/13/19 19:20 7.6 gm/dL (6.2-8.2) 05/13/19 19:20 3.2 gm/dl (3.4-5.0) L 05/13/19 19:20 Amylase 25 U/L (25-115) 05/13/19 19:20 97 U/L (73-393) 05/13/19 19:20 Yellow 05/13/19 19:54 Clear (CLEAR) 05/13/19 19:54 6.0 pH (5.0-7.0) 05/13/19 19:54 Ur Specific [place] 1.010 SP.GR. (1.005-1.030) 05/13/19 19:54 Negative mg/dL (NEGATIVE) 05/13/19 19:54 >=1000 mg/dL (NEGATIVE) H 05/13/19 19:54 Negative mg/dL (NEGATIVE) 05/13/19 19:54 25 /ul (NEGATIVE) H 05/13/19 19:54 Negative (NEGATIVE) 05/13/19 19:54 Negative mg/dl (NEGATIVE) 05/13/19 19:54 Normal EU/dl (NORMAL) 05/13/19 19:54 Ur Leukocyte Esterase Negative /ul (NEGATIVE) 05/13/19 19:54 0-5 /hpf (0-5) 05/13/19 19:54 None seen /hpf (0-5) 05/13/19 19:54 Ur Epithelial Cells Trace /hpf (0-5) 05/13/19 19:54 Trace (NONE) 05/13/19 19:54 No culture indicated 05/13/19 19:54 Assessment/Plan - Narrative Narrative: Patient good spirits and pleasant to talk to at initial encounter. Temperature had returned to normal at 36.3. Patient satting better on room air 94% no longer requiring oxygen. Patient's blood pressure and other vital signs been stable though his respiratory rate is still slightly increased at 24. Lactic acidosis returned to normal with gentle fluid resuscitation from 3.8 down to 1.9. CHF exacerbationelevated BNP with vascular congestion, shortness of breath, cough as other clinical symptoms. Patient will need diuresis likely at some poi nt but more importantly was addressing kidney function and lactic acidosis as patient clinically improved from a breathing standpoint with O2 administration and antibiotics. He currently is satting well on room air despite being fluid overloaded. Will stop the fluids now and repeat labs in the morning. Duo nebs ordered every 4 hours PRN. Patient received Rocephin and azithromycin for antibiotic therapy for his pneumonia. Blood pressure running a little bit low but per patient and this is close to his baseline. We will continue to monitor as I had initial concerns for hypo-tensive shock due to patient's clinical picture but this seems unlikely to happen. Patient is stable. Chronic kidney diseasecreatinine slightly above baseline and GFR is slightly below baseline but hopefully this improves with gentle fluid resuscitation he received in the ER while the floor. Again we will repeat labs in the morning see how he is doing. Diabetespatient appears to be poorly controlled, came into the hospital with sugars greater than 400 despite being compliant with medical treatments per patient. Both he and his are adamant that we not do a sliding scale but I explained to them that infections tend to be worse with elevated sugars and that we needed to get his sugars are controlled. Sugars repeated this evening was found to be at 315 despite receiving his normal dose prior to come to the ER. We will give an additional night dose this evening and recheck sugars in 2 hours. Resume regular management the morning, as well as having a sliding scale insulin to be used q. before meals at bedtime. Lactic acidosis has resolved Patient takes apixaban for A. fib, will continue. No other DVT prophylaxis needed. Patient to be started on a consistent carb diet in the morning. Nurse to call with any questions or concerns. 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 (4) Decreased renal function Problem: Chronic (5) Pneumonia Problem: Acute Qualifiers: Pneumonia type: due to unspecified organism Laterality: bilateral Lung location: unspecified part of lung Qualified Code(s): J18.9 - Pneumonia, unspecified organism (6) Hypoxemia Problem: Chronic (7) Dyspnea Problem: Acute Qualifiers: Dyspnea type: shortness of breath Qualified Code(s): R06.02 - Shortness of breath; R06.00 - Dyspnea, unspecified; R06.01 - Orthopnea (8) A-fib Problem: Acute Qualifiers: Atrial fibrillation type: chronic Qualified Code(s): I48.2 - Chronic atrial fibrillation (9) Status post bilateral below knee amputation Problem: Acute
[2019-05-13] MEDS ORDERED: HUM INSULIN NPH/REG INSULIN HM 100 UNIT/ML VIAL SC ONE (23:39)
[2019-05-14] MEDS ORDERED: INSULIN LISPRO 100 UNITS/ML VIAL SC ONE (00:15)
[2019-05-14] MEDS: INSULIN ASPART PROT/INSULN ASP 100 UNITS/ML VIAL SC SCH ×3 (00:32→17:28)
[2019-05-14 05:43] LABS: Hematocrit 39.3 % (42.0-52.0); Hemoglobin 12.8 gm/dL (13.5-18.0); Mean Cell Volume 90.6 fl (78-100); Mean Corpuscular Hemoglobin 29.5 pg (27-31); Mean Corpuscular Hgb Conc 32.6 g/dl (32-36); Mean Platelet Volume 10.3 fl (8-11.3); Neutrophil # 2.2 K/mm3 (1.3-6.0); Platelet Count 207 K/mm3 (150-450); Red Blood Count 4.34 M/mm3 (4.7-6.0); Red Cell Distribution Width 14.3 % (11.5-14.0); White Blood Count 3.2 K/mm3 (4.0-10.5)
[2019-05-14 05:51] LABS: Anion Gap 11.8 mmol/L (6.8-13.8); BUN/Creatinine Ratio 19.2 (9.0-21.6); Calcium * 8.5 mg/dL (7.9-10.9); Carbon Dioxide 28.2 mmol/L (24-32.6)
[2019-05-14] MEDS: BUMETANIDE 1 MG TABLET PO SCH ×2 (09:53→17:28)
[2019-05-14] MEDS: FINASTERIDE 5 MG TABLET PO SCH (09:53)
[2019-05-14] MEDS: ASPIRIN 81 MG TABLET.DR PO SCH (09:53)
--- NOTE | 2019-05-14 16:20 | PN ---
Subjective - Date and Time Seen Date: 05/14/19 Time: 15:30 Subjective Narrative: Salinas Hood is an 79-year-old male admitted last night through the ER with shortness of breath and weakness. He was in respiratory distress on arrival. Lab evaluation showed his blood sugars greater than 400 and his BNP greater than 13,000. Chest x-ray shows stable compression atelectasis from pleural effusions that are bilateral left greater than right. He has a bilatera l lower extremity amputee. He wears prostheses bilaterally. This afternoon, he is feeling much better and breathing easier. He is able to speak in complete sentences and is in no respiratory distress. His color is good. His blood sugar this morning is down to 185. He was admitted with diagnosis of pneumonia but his white count is only 3500 although there is a slight left shift in the differential. Even though his BNP is very high he has lab indications of decreased renal function with EGFR slightly below his baseline. The creatinine is slightly above baseline. Since he is improving with current therapy I will continue the same for today and tonight. Dr. Fontanez will be taking care of him through the weekend. Objective - Review of Systems Generalized/Overall Review: Reports: Weakness, Malaise, Fatigue EENTM: Reports: No Symptoms Reported Respiratory: Reports: Shortness of Breath Cardiac: Reports: No Symptoms Reported Abdominal: Reports: No Symptoms Reported Genitourinary Symptoms: Reports: No Symptoms Reported Musculoskeletal Complaints: Reports: No Symptoms Reported Neurological: Reports: No Symptoms Reported Skin: Reports: No Symptoms Reported Endocrine: Reports: No Symptoms Reported Misc: All systems neg except as marked - Vitals Vitals: Last Vital Signs Temp 37.3 C 05/14/19 14:45 Pulse 89 05/14/19 14:45 Resp 20 05/14/19 14:45 BP 136/76 05/14/19 14:45 Pulse Ox 94 05/14/19 14:45 - Abnormal Lab Findings Abnormal Lab Findings: Abnormal Lab Results 05/13/19 05/13/19 05/13/19 Range/Units 19:20 19:20 19:20 WBC 3.5 L (4.0-10.5) K/mm3 RBC 4.25 L (4.7-6.0) M/mm3 Hgb 12.5 L (13.5-18.0) gm/dL Hct 38.6 L (42.0-52.0) % RDW 14.5 H (11.5-14.0) % Neutrophils % 76.2 H (42-75.0) % Lymphocytes % 12.9 L (20-51) % Basophils % 1.4 H (0.0-1.0) % Lymphocytes # 0.45 L (1.5-3.5) k/mm3 Sodium 131 L (132-142) mmol/L Chloride 93 L (97-106) mmol/L Anion Gap 15.5 H (6.8-13.8) mmol/L BUN 35 H (6-23) mg/dL Creatinine 1.98 H (0.4-1.4) mg/dL Est GFR (Non-Af Amer) 35 L (60-130) mL/min Random Glucose 442 H (70-110) mg/dL Lactic Acid, Venous 3.8 H* (0.4-2.0) mmol/L ALT 16 L (19-67) U/L B-Natriuretic Peptide 82499 H (5-650) pg/mL Albumin 3.2 L (3.4-5.0) gm/dl Urine Glucose (UA) (NEGATIVE) mg/dL Urine Blood (NEGATIVE) /ul 05/13/19 05/14/19 05/14/19 Range/Units 19:54 05:15 05:15 WBC 3.2 L (4.0-10.5) K/mm3 RBC 4.34 L (4.7-6.0) M/mm3 Hgb 12.8 L (13.5-18.0) gm/dL Hct 39.3 L (42.0-52.0) % RDW 14.3 H (11.5-14.0) % Neutrophils % (42-75.0) % Lymphocytes % 19.4 L (20-51) % Basophils % 1.5 H (0.0-1.0) % Lymphocytes # 0.63 L (1.5-3.5) k/mm3 Sodium (132-142) mmol/L Chloride (97-106) mmol/L Anion Gap (6.8-13.8) mmol/L BUN 33 H (6-23) mg/dL Creatinine 1.72 H (0.4-1.4) mg/dL Est GFR (Non-Af Amer) 41 L (60-130) mL/min Random Glucose 136 H D (70-110) mg/dL Lactic Acid, Venous (0.4-2.0) mmol/L ALT (19-67) U/L B-Natriuretic Peptide (5-650) pg/mL Albumin (3.4-5.0) gm/dl Urine Glucose (UA) >=1000 H (NEGATIVE) mg/dL Urine Blood 25 H (NEGATIVE) /ul - EKG/Xray Findings EKG: NSR EKG read: Reviewed by me XRAY: chest Interpretation: Reviewed by me - Exam Constitutional: Present: Alert, Oriented x3, Cooperative, Well developed, Well nourished, No distress, Elderly ENT Exam: Present: normal ENT inspection, hearing grossly normal, pharynx normal, TMs normal Neck: Present: non-tender, limited range of motion Breasts: Present: Exam deferred Respiratory: Present: chest non-tender, lungs clear, decreased breath sounds, No rales, No wheezing Cardiovascular/Chest: Present: normal peripheral pulses, regular rate, rhythm, no chest tenderness, no JVD - But HJR is positive at 90 degrees. Abdomen: Present: Normal bowel sounds, soft, nontender, nondistended, no rebound tenderness, no hepatospenomegaly, no masses /Rectal: Present: Exam deferred Extremity: Present: normal range of motion - Of upper extremities. He has bilateral BKA prostheses., normal capillary refill Skin Exam: Present: normal color Lymphatic: Present: no adenopathy Neurologic: Present: senior analyst II-XII nml as tested, normal cerebellar test, no larry r/sensory deficits, alert, normal mood/affect, oriented x 3 Appearance: Present: appropriate appearance, appropriate insight, neat, no memory impairment Eye contact: Present: cooperative, good eye contact, normal speech, avoids eye contact Thoughts: Present: normal thought pattern, no apparent hallucination Assessment/Plan Plan Narrative: 1. Repeat morning lab 2. Echocardiogram if not done recently 3. CT chest without contrast - Problems/Diagnosis (1) Acute respiratory distress Problem: Resolved (2) Pleural effusion due to CHF (congestive heart failure) Problem: Acute (3) Congestive heart failure Problem: Chronic Qualifiers: Heart failure type: unspecified Heart failure chronicity: unspecified Qualified Code(s): I50.9 - Heart failure, unspecified (4) Diabetes Problem: Chronic Qualifiers: Diabetes mellitus type: type 2 Diabetes mellitus buttermaker insulin use: with buttermaker use Diabetes mellitus complication status: with hyperglycemia Qualified Code(s): E11.65 - Type 2 diabetes mellitus with hyperglycemia; Z79.4 - intermediate (current) use of insulin
[2019-05-14] MEDS ORDERED: CEFDINIR 300 MG CAPSULE PO SCH (21:00)
[2019-05-15] MEDS: APIXABAN 5 MG TABLET PO SCH ×2 (01:48→08:54)
[2019-05-15] MEDS ORDERED: FUROSEMIDE 10 MG/ML VIAL IV ONE (07:08)
[2019-05-15] MEDS ORDERED: hydrOXYzine HCL 25 MG TABLET PO ONE (07:09)
[2019-05-15 08:49] LABS: Hematocrit 37.3 % (42.0-52.0); Hemoglobin 12.2 gm/dL (13.5-18.0); Mean Cell Volume 89.9 fl (78-100); Mean Corpuscular Hemoglobin 29.4 pg (27-31); Mean Corpuscular Hgb Conc 32.7 g/dl (32-36); Mean Platelet Volume 10.8 fl (8-11.3); Neutrophil # 4.6 K/mm3 (1.3-6.0); Neutrophil % 86.1 % (42-75.0); Platelet Count 166 K/mm3 (150-450); Red Blood Count 4.15 M/mm3 (4.7-6.0); Red Cell Distribution Width 14.3 % (11.5-14.0); White Blood Count 5.3 K/mm3 (4.0-10.5)
[2019-05-15] MEDS: INSULIN ASPART PROT/INSULN ASP 100 UNITS/ML VIAL SC SCH (08:52)
[2019-05-15] MEDS: ASPIRIN 81 MG TABLET.DR PO SCH (08:52)
[2019-05-15] MEDS: BUMETANIDE 1 MG TABLET PO SCH (08:52)
[2019-05-15] MEDS: FINASTERIDE 5 MG TABLET PO SCH (08:53)
[2019-05-15] MEDS ORDERED: CEFDINIR 300 MG CAPSULE PO SCH (09:00)
[2019-05-15 09:05] LABS: Albumin * 3.1 gm/dl (3.4-5.0); Anion Gap 16.8 mmol/L (6.8-13.8); BUN/Creatinine Ratio 19.5 (9.0-21.6); Bilirubin, Total 0.7 mg/dL (0.0-1.1); Ca. Corrected For Albumin 9.1 mg/dL (8.4-10.2); Calcium * 8.7 mg/dL (7.9-10.9); Carbon Dioxide 25.9 mmol/L (24-32.6); Potassium 4.7 mmol/L (3.4-4.6); Total Protein 7.3 gm/dL (6.2-8.2)
[2019-05-15 09:10] LABS: Troponin I 0.339 ng/mL (0.00-0.10)
[2019-05-15] MEDS: INSULIN LISPRO 100 UNITS/ML VIAL SC SCH ×2 (09:42→11:42)
--- NOTE | 2019-05-15 13:06 | PN ---
Subjective - Date and Time Seen Date: 05/15/19 Time: 13:05 Subjective Narrative: Patient had a worsened shortness of breath this morning. He also had a fever yesterday evening. He felt like he was anxious also. Nursing staff also noticed he was in A. fib overnight. Recheck early this afternoon shows his breathing has gotten easier. Objective - Review of Systems Generalized/Overall Review: Reports: Fever Respiratory: Reports: Shortness of Breath Cardiac: Denies: Chest Pain Abdominal: Denies: Nausea Genitourinary Symptoms: Reports: No Symptoms Reported - Vitals Vitals: Last Vital Signs Temp 37.8 C 05/15/19 10:43 Pulse 105 H 05/15/19 12:01 Resp 22 H 05/15/19 10:43 BP 123/60 05/15/19 10:43 Pulse Ox 96 05/15/19 10:43 - Abnormal Lab Findings Abnormal Lab Findings: Abnormal Lab Results 05/15/19 05/15/19 05/15/19 Range/Units 08:43 08:43 10:52 RBC 4.15 L (4.7-6.0) M/mm3 Hgb 12.2 L (13.5-18.0) gm/dL Hct 37.3 L (42.0-52.0) % RDW 14.3 H (11.5-14.0) % Neutrophils % 86.1 H (42-75.0) % Lymphocytes % 7.9 L (20-51) % Lymphocytes # 0.42 L (1.5-3.5) k/mm3 Sodium 128 L (132-142) mmol/L Potassium 4.7 H (3.4-4.6) mmol/L Chloride 90 L (97-106) mmol/L Anion Gap 16.8 H (6.8-13.8) mmol/L BUN 36 H (6-23) mg/dL Creatinine 1.85 H (0.4-1.4) mg/dL Est GFR (Non-Af Amer) 37 L (60-130) mL/min Random Glucose 404 H D (70-110) mg/dL ALT 18 L (19-67) U/L Troponin I 0.339 H* 0.346 H* (0.00-0.10) ng/mL Albumin 3.1 L (3.4-5.0) gm/dl - Exam Constitutional: Present: Alert, Cooperative, No distress, Elderly Respiratory: Present: decreased breath sounds - left mid and lower lung Cardiovascular/Chest: Present: regular rate, rhythm Abdomen: Present: Normal bowel sounds, obese Eye contact: Present: cooperative, good eye contact Assessment/Plan - Problems/Diagnosis (1) Dyspnea Problem: Acute Qualifiers: Dyspnea type: shortness of breath Qualified Code(s): R06.02 - Shortness of breath; R06.00 - Dyspnea, unspecified; R06.01 - Orthopnea Narrative: Secondary to pleural effusion and potential cardiac event. Given his dyspnea, troponin and EKG were repeated, and his troponin was 0.3, and 0.5 on recheck. His EKGs show some ST depression in the lateral precordial leads. Recommend he see a mixing tank operator, and transfer process has been started. (2) Pleural effusion due to CHF (congestive heart failure) Problem: Acute Narrative: He had worsened SOB overnight, and his pleural effusion looks slightly worse on CXR. He was given IV lasix, and his breathing improved this afternoon. (3) A-fib Problem: Chronic Qualifiers: Atrial fibrillation type: chronic Qualified Code(s): I48.2 - Chronic atrial fibrillation (4) CRF (chronic renal failure) Problem: Chronic Qualifiers: Chronic kidney disease stage: unspecified stage Qualified Code(s): N18.9 - Chronic kidney disease, unspecified (5) COPD (chronic obstructive pulmonary disease) Problem: Chronic Qualifiers: COPD type: emphysema Emphysema type: panlobular Qualified Code(s): J43.1 - Panlobular emphysema (6) History of left below knee amputation Problem: Chronic (7) History of right below knee amputation Problem: Chronic (8) Myocardial infarct, old Problem: Chronic (9) History of heart artery stent Problem: Chronic (10) Hypertension Problem: Chronic Qualifiers: Hypertension type: essential hypertension Qualified Code(s): I10 - Essential (primary) hypertension (11) Diabetes Problem: Chronic Qualifiers: Diabetes mellitus type: type 2 Diabetes mellitus [facility] insulin use: with exterminator helper use Diabetes mellitus complication status: with circulatory complication Narrative: He and his did not want sliding scale insulin on admission, however his glucose is greater than 300. SSI, low dose, started today.
--- NOTE | 2019-05-15 15:38 | DS ---
Transfer Discharge Summary - Diagnosis(s)/Problems (1) Dyspnea Problem: Acute (2) Pleural effusion due to CHF (congestive heart failure) Problem: Acute (3) A-fib Problem: Chronic (4) CRF (chronic renal failure) Problem: Chronic (5) COPD (chronic obstructive pulmonary disease) Problem: Chronic (6) History of left below knee amputation Problem: Chronic (7) History of right below knee amputation Problem: Chronic (8) Myocardial infarct, old Problem: Chronic (9) History of heart artery stent Problem: Chronic (10) Hypertension Problem: Chronic (11) Diabetes Problem: Chronic - Course Description of Stay: Patient with past medical history of previous [place] with stent placement, hypertension, bilateral BKA, chronic renal disease, diabetes, heart failure presented with 2 days of shortness of breath. He was given Rocephin for potential pneumonia. He had a moderate pleural effusion on the left. He developed some shortness of breath in the morning of 05/15, and subsequent chest x-ray looks like his pleural effusion was slightly larger. There were no providers available at this facility to perform thoracentesis. His troponins were checked, and went from 0.3 to 0.5. He had some lateral ST depression on EKGs. It was felt he may be having a cardiac event, and transfer process was initiated. Procedures Performed: none - Results and Findings Results and Findings: Laboratory Results - last 24 hr 05/15/19 05/15/19 05/15/19 08:43 08:43 10:52 WBC 5.3 D RBC 4.15 L Hgb 12.2 L Hct 37.3 L MCV 89.9 MCH 29.4 MCHC 32.7 RDW 14.3 H Plt Count 166 MPV 10.8 Immature Gran % (Auto) 0.40 Immature Gran # (Auto) 0.02 Neutrophils % 86.1 H Lymphocytes % 7.9 L Monocytes % 4.7 Eosinophils % 0.0 Basophils % 0.9 Nucleated RBC % 0.0 Neutrophils # 4.6 Lymphocytes # 0.42 L Monocytes # 0.3 Eosinophils # 0.0 Absolute Basophils 0.1 Sodium 128 L Plasma Sodium 133 Potassium 4.7 H Chloride 90 L Carbon Dioxide 25.9 Anion Gap 16.8 H BUN 36 H Creatinine 1.85 H Est GFR (Non-Af Amer) 37 L BUN/Creatinine Ratio 19.5 Random Glucose 404 H D Calcium 8.7 Calcium Adj for Albumin 9.1 Total Bilirubin 0.7 AST 27 ALT 18 L Alkaline Phosphatase 121 Troponin I 0.339 H* 0.346 H* Total Protein 7.3 Albumin 3.1 L 05/15/19 13:56 WBC RBC Hgb Hct MCV MCH MCHC RDW Plt Count MPV Immature Gran % (Auto) Immature Gran # (Auto) Neutrophils % Lymphocytes % Monocytes % Eosinophils % Basophils % Nucleated RBC % Neutrophils # Lymphocytes # Monocytes # Eosinophils # Absolute Basophils Sodium Plasma Sodium Potassium Chloride Carbon Dioxide Anion Gap BUN Creatinine Est GFR (Non-Af Amer) BUN/Creatinine Ratio Random Glucose Calcium Calcium Adj for Albumin Total Bilirubin AST ALT Alkaline Phosphatase Troponin I 0.561 H* Total Protein Albumin - Medications Medications: Active Medications Acetaminophen (Tylenol) 1,000 mg PO Q8H PRN PRN Reason: Mild pain (pain scale 1-3) Stop: 06/12/19 22:14 Last Admin: 05/14/19 19:15 Dose: 1,000 mg Documented by: Apixaban (Eliquis) 5 mg PO DAILY [facility] Stop: 06/13/19 21:46 Last Admin: 05/15/19 08:54 Dose: 5 mg Documented by: Aspirin (Aspirin Enteric Coated) 81 mg PO DAILY [facility] Stop: 06/13/19 09:01 Last Admin: 05/15/19 08:52 Dose: 81 mg Documented by: Bumetanide (Bumex) 2 mg PO BIDWM [facility] Stop: 06/13/19 09:01 Last Admin: 05/15/19 08:52 Dose: 2 mg Documented by: Cefdinir (Omnicef) 300 mg PO BID [facility]; Protocol Stop: 06/14/19 09:01 Last Admin: 05/15/19 08:52 Dose: 300 mg Documented by: Finasteride (Proscar) 5 mg PO DAILY [facility] Stop: 06/13/19 09:01 Last Admin: 05/15/19 08:53 Dose: 5 mg Documented by: Insulin Aspart Prota 70%/Aspart 30% (Novolog Mix 70/30) 15 units SC QPM [facility] Stop: 06/12/19 23:16 Last Admin: 05/14/19 17:28 Dose: 15 units Documented by: Insulin Aspart Prota 70%/Aspart 30% (Novolog Mix 70/30) 40 units SC QAM [facility] Stop: 06/13/19 09:01 Last Admin: 05/15/19 08:52 Dose: 40 units Documented by: Insulin Human Lispro (Humalog) 0 units SC ACHSINS [facility]; Protocol Stop: 06/14/19 12:01 Last Admin: 05/15/19 11:42 Dose: 6 units Documented by: Discontinued Medications Acetaminophen (Tylenol) 1,000 mg PO ONCE ONE Stop: 05/13/19 19:17 Last Admin: 05/13/19 19:20 Dose: 1,000 mg Documented by: Azithromycin (Zithromax) 500 mg PO ONCE ONE; Protocol Stop: 05/13/19 20:13 Last Admin: 05/13/19 21:34 Dose: 500 mg Documented by: Furosemide (Lasix) 40 mg IV ONCE ONE Stop: 05/15/19 07:09 Last Admin: 05/15/19 07:16 Dose: 40 mg Documented by: Hydroxyzine HCl (Atarax) 25 mg PO ONCE ONE Stop: 05/15/19 07:10 Last Admin: 05/15/19 07:17 Dose: 25 mg Documented by: Sodium Chloride (Sodium Chloride 0.9%) 2,280 mls @ 126 mls/hr IV .Q18H6M ONE Stop: 05/14/19 13:51 Last Admin: 05/13/19 20:08 Dose: 126 mls/hr Documented by: Ceftriaxone Sodium (Rocephin 1000 Mg Er Piggyback) 1,000 mg in 100 mls @ 200 ml s/hr IV ONCE ONE Stop: 05/13/19 20:41 Last Infusion: 05/13/19 22:04 Dose: Infused Documented by: Ceftriaxone Sodium 1,000 mg/ (Dextrose/Water) 100 mls @ 200 mls/hr IV ONCE ONE; Protocol Stop: 05/14/19 19:42 Last Infusion: 05/14/19 20:40 Dose: Infused Documented by: Ceftriaxone Sodium 1,000 mg/ (Dextrose/Water) 100 mls @ 200 mls/hr IV ONCE ONE; Protocol Stop: 05/14/19 20:41 Last Admin: 05/14/19 20:34 Dose: Not Given Documented by: Insulin Aspart Prota 70%/Aspart 30% (Novolog Mix 70/30) 40 units SC QPM [facility] Stop: 06/12/19 22:09 Last Admin: 05/13/19 23:20 Dose: Not Given Documented by: Insulin Human Lispro (Humalog) 15 units SC ONCE ONE Stop: 05/14/19 00:16 Last Admin: 05/14/19 00:27 Dose: 15 units Documented by: - Disposition Disposition: Short Term Hospital Inpatient Condition: Stable Discharge Date: 05/15/19
[2019-05-15 16:21] VITALS: BP 112/68
== END 2019-05-15 16:00 | disposition short-term general hospital (02) | DRG 194 ==
LOC: ER 18:48 → MS 20:22
PROVIDERS: ADMIT Family Medicine; ATTEND Family Medicine
CPT/HCPCS: 36415; 71020; 71046; 80048; 80053; 81001; 82150; 83519; 83605; 83690; 83880; 84484; 85025; 87040; 93005; 94760; 96360; 99285